=== PATIENT | male | born 1955 | race Caucasian/White ===

== ENCOUNTER 2017-08-29 06:59 | Observation (INO) | payer BC ==
[2017-08-29] MEDS ORDERED: Aspirin 81 mg CHEW TAB* 81 MG TAB.CHEW PO ONE (07:27)
[2017-08-29] MEDS ORDERED: Nitroglycerin 2% OINT* 1 GM PAK TOPICAL ONE (07:27)
[2017-08-29 07:58] LABS: ABS Basophils 0 10^3/ul (0-0.2); ABS Eosinophils 0.2 10^3/ul (0-0.6); ABS Lymphocytes 1.3 10^3/ul (1.0-4.8); ABS Monocytes 0.7 10^3/ul (0-0.8); ABS Neutrophils 3.1 10^3/ul (1.5-7.7); ABS Nucleated RBC 0 10^3/ul; Eosinophil % 3.3 % (0-6); Hematocrit 45 % (42-52); Hemoglobin 15.2 g/dl (14.0-18.0); Mean Corpuscular HGB Conc 34 g/dl (31-36); Mean Corpuscular Hemoglobin 32 pg (27-31); Mean Corpuscular Volume 94 fL (80-94); Mean Platelet Volume 7.7 um3 (7.4-10.4); Nucleated Red Blood Cells % 0.2; Platelet Count 191 10^3/ul (150-450); Red Blood Count 4.79 10^6/ul (4.0-5.4); Red Cell Distribution Width 13 % (10.5-15); White Blood Count 5.3 10^3/ul (3.5-10.8)
[2017-08-29 08:12] LABS: INR 0.9 (0.77-1.02)
[2017-08-29 08:14] LABS: EGFR Non-African American 63.2 (>60)
--- NOTE | 2017-08-29 08:24 | RAD ---
INDICATION: Chest pain COMPARISON: February 05, 2010 TECHNIQUE: An AP portable view obtained at 0730 hours is submitted. FINDINGS: Bones/Soft Tissues: There are no acute bony findings. Cardiomediastinal: The cardiomediastinal silhouette is normal. Lungs: There is apparent nodularity projecting of the left lung base. Suggest CT imaging the chest. Pleura: There is suspicion of pleural reactive change left lung base. Other: None IMPRESSION: LEFT BASILAR NODULE VERSUS ARTIFACT . SUGGEST CT IMAGING OF THE CHEST.
--- NOTE | 2017-08-29 09:52 | ED ---
Stephon Grewal Tiffany, scribed for Shawn Hwang on 08/29/17 at 0735 . HPI Chest Pain - HPI Summary HPI Summary: 61 y/o M presenting to [facility] complains of left chest wall pain that began at 04: 00 today while sleeping. Rates the pain 5/10 in severity. Symptoms aggravated and alleviated by nothing. Denies nausea, vomiting, dizziness, shortness of breath. Denies cardiac hx. - History of Current Complaint Chief Complaint: EDChestPainROMI Hx Obtained From: Patient Onset/Duration: Started Hours Ago - 04:00 today, Still Present Time of Onset: 04:00 Timing: Constant Current Severity: Moderate Pain Intensity: 5 Pain Scale Used: 0-10 Numeric Aggravating Factor(s): Nothing Alleviating Factor(s): Nothing Associated Signs and Symptoms: Positive: Negative - nausea, vomiting, dizziness , shortness of breath - Allergy/Home Medications Allergies/Adverse Reactions: Allergies Allergy/AdvReac Type Severity Reaction Status Date / Time No Known Allergies Allergy Verified 08/29/17 07:08 Home Medications: Home Medications Atenolol TAB* [Tenormin TAB* 25 MG] 25 mg PO DAILY 08/29/17 [History Confirmed 08/29/17] Furosemide TAB* [Lasix TAB*] 20 mg PO DAILY 08/29/17 [History Confirmed 08/29/17 ] Omeprazole CAP* [Prilosec CAP* 20 MG] 20 mg PO DAILY 08/29/17 [History Confirmed 08/29/17] Pravastatin (NF) [Pravachol (NF)] 20 mg PO BEDTIME 08/29/17 [History Confirmed 08/29/17] amLODIPine TAB* [Norvasc 5 mg TAB*] 10 mg PO DAILY 08/29/17 [History Confirmed 08/29/17] PMH/Surg Hx/FS Hx/Imm Hx Previously Healthy: Yes Endocrine/Hematology History: Denies: Hx Diabetes, Hx Thyroid Disease Cardiovascular History: Denies: Hx Congenital Heart Disease, Hx Hypertension Respiratory History: Denies: Hx Asthma, Hx Chronic Obstructive Pulmonary Disease (COPD) GI History: Denies: Hx Ulcer Psychiatric History: Denies: Hx Panic Disorder - Surgical History Surgery Procedure, Year, and Place: "Face stuff removed" Infectious Disease History: No Infectious Disease History: Denies: Hx Hepatitis, Hx Human Immunodeficiency Virus (HIV), Traveled Outside the [place] in Last 30 Days - Family History Known Family History: Positive: Other - Father had pacemaker ~60 y/o - Social History Hx Substance Use: No Substance Use Type: Reports: None Hx Tobacco Use: Yes Smoking Status (MU): Former Smoker - Quit in 2016 Review of Systems Positive: Chest Pain - left Negative: Shortness Of Breath Negative: Vomiting, Nausea Neurological: Negative - Dizziness All Other Systems Reviewed And Are Negative: Yes Physical Exam - Summary Physical Exam Summary: Appearance: Well appearing, no pain distress Skin: warm, dry, reflects adequate perfusion Head/face: normal Eyes: EOMI, JULIENNE ENT: normal Neck: supple, non-tender Respiratory: CTA, breath sounds present Cardiovascular: RRR, pulses symmetrical Abdomen: non-tender, soft Bowel: present Musculoskeletal: normal, strength/ROM intact Neuro: normal, sensory motor intact, A&Ox3 Triage Information Reviewed: Yes Vital Signs On Initial Exam: Initial Vitals Temp Pulse Resp BP Pulse Ox 97.3 F 73 20 148/79 97 08/29/17 07:07 08/29/17 07:07 08/29/17 07:07 08/29/17 07:07 08/29/17 07:07 Vital Signs Reviewed: Yes Diagnostics - Vital Signs Vital Signs Temp Pulse Resp BP Pulse Ox 08/29/17 07:12 20 150/99 08/29/17 07:11 16 08/29/17 07:07 97.3 F 73 20 148/79 97 - Laboratory Lab Results: Lab Results 08/29/17 08/29/17 08/29/17 Range/Units 07:44 07:44 07:44 WBC 5.3 (3.5-10.8) 10^3/ul RBC 4.79 (4.0-5.4) 10^6/ul Hgb 15.2 (14.0-18.0) g/dl Hct 45 (42-52) % MCV 94 (80-94) fL MCH 32 H (27-31) pg MCHC 34 (31-36) g/dl RDW 13 (10.5-15) % Plt Count 191 (150-450) 10^3/ul MPV 7.7 (7.4-10.4) um3 Neut % (Auto) 58.4 (38-83) % Lymph % (Auto) 25.0 (25-47) % [place] % (Auto) 13.1 H (0-7) % Eos % (Auto) 3.3 (0-6) % Baso % (Auto) 0.2 (0-2) % Absolute Neuts (auto) 3.1 (1.5-7.7) 10^3/ul Absolute Lymphs (auto) 1.3 (1.0-4.8) 10^3/ul Absolute Monos (auto) 0.7 (0-0.8) 10^3/ul Absolute Eos (auto) 0.2 (0-0.6) 10^3/ul Absolute Basos (auto) 0 (0-0.2) 10^3/ul Absolute Nucleated RBC 0 10^3/ul Nucleated RBC % 0.2 INR (Anticoag Therapy) (0.77-1.02) APTT (26.0-36.3) seconds Sodium 138 L (139-145) mmol/L Potassium 4.1 (3.5-5.0) mmol/L Chloride 104 (101-111) mmol/L Carbon Dioxide 31 (22-32) mmol/L Anion Gap 3 (2-11) mmol/L BUN 16 (6-24) mg/dL Creatinine 1.18 H (0.67-1.17) mg/dL Est GFR ( Amer) 81.3 (>60) Est GFR (Non-Af Amer) 63.2 (>60) BUN/Creatinine Ratio 13.6 (8-20) Glucose 119 H (70-100) mg/dL Lactic Acid 0.8 (0.5-2.0) mmol/L Calcium 9.3 (8.6-10.3) mg/dL Total Bilirubin 0.50 (0.2-1.0) mg/dL AST 33 (13-39) U/L ALT 49 (7-52) U/L Alkaline Phosphatase 72 (34-104) U/L Troponin I 0.00 (<0.04) ng/mL B-Natriuretic Peptide ( - 100) pg/mL Total Protein 6.8 (6.4-8.9) g/dL Albumin 4.1 (3.2-5.2) g/dL Globulin 2.7 (2-4) g/dL Albumin/Globulin Ratio 1.5 (1-3) 08/29/17 08/29/17 Range/Units 07:44 07:44 WBC (3.5-10.8) 10^3/ul RBC (4.0-5.4) 10^6/ul Hgb (14.0-18.0) g/dl Hct (42-52) % MCV (80-94) fL MCH (27-31) pg MCHC (31-36) g/dl RDW (10.5-15) % Plt Count (150-450) 10^3/ul MPV (7.4-10.4) um3 Neut % (Auto) (38-83) % Lymph % (Auto) (25-47) % [place] % (Auto) (0-7) % Eos % (Auto) (0-6) % Baso % (Auto) (0-2) % Absolute Neuts (auto) (1.5-7.7) 10^3/ul Absolute Lymphs (auto) (1.0-4.8) 10^3/ul Absolute Monos (auto) (0-0.8) 10^3/ul Absolute Eos (auto) (0-0.6) 10^3/ul Absolute Basos (auto) (0-0.2) 10^3/ul Absolute Nucleated RBC 10^3/ul Nucleated RBC % INR (Anticoag Therapy) 0.90 (0.77-1.02) APTT 31.8 (26.0-36.3) seconds Sodium (139-145) mmol/L Potassium (3.5-5.0) mmol/L Chloride (101-111) mmol/L Carbon Dioxide (22-32) mmol/L Anion Gap (2-11) mmol/L BUN (6-24) mg/dL Creatinine (0.67-1.17) mg/dL Est GFR ( Amer) (>60) Est GFR (Non-Af Amer) (>60) BUN/Creatinine Ratio (8-20) Glucose (70-100) mg/dL Lactic Acid (0.5-2.0) mmol/L Calcium (8.6-10.3) mg/dL Total Bilirubin (0.2-1.0) mg/dL AST (13-39) U/L ALT (7-52) U/L Alkaline Phosphatase (34-104) U/L Troponin I (<0.04) ng/mL B-Natriuretic Peptide 36 ( - 100) pg/mL Total Protein (6.4-8.9) g/dL Albumin (3.2-5.2) g/dL Globulin (2-4) g/dL Albumin/Globulin Ratio (1-3) Result Diagrams: 08/29/17 07:44 08/29/17 07:44 Lab Statement: Any lab studies that have been ordered have been reviewed, and results considered in the medical decision making process. - Radiology CXR Radiology Interpretation Completed By: Radiologist - LEFT BASILAR NODULE VERSUS ARTIFACT . SUGGEST CT IMAGING OF THE CHEST. ED physician has reviewed this report. - EKG 06:55 Cardiac Rate: NL - 64 BPM EKG Rhythm: Sinus Rhythm EKG Interpretation: No acute changes Re-Evaluation - Re-Evaluation First Eval Re-Evaluation Time: 08:45 Change: Unchanged Comment: Patient notified of CXR results. Chest Pain Course/Dx - Course Course Of Treatment: 61 y/o M complains of left chest wall pain that began at 04 :00 today while sleeping. Bloodwork, EKG, CXR obtained. Discussed patient care with Dr. Rodriguez, hospitalist, who agrees to admit patient. Dx chest pain and ruled out DC. - Chest Pain Differential Diagnosis/HQI/PQRI: Acute DC, ACS, Angina, Chest Wall, Lower Respiratory Infection - Diagnoses Provider Diagnoses: Chest pain, Ruled out for myocardial infarction - Provider Notifications Discussed Care Of Patient With: Sylvie Rodriguez Time Discussed With Above Provider: 09:03 Instructed by Provider To: Other - Discussed patient with Dr. Rodriguez, hospitalist , who agrees to admit patient. Discharge - Sign-Out/Discharge Documenting (check all that apply): Discharge/Admit/Transfer - Discharge Plan Condition: Stable Disposition: ADMITTED TO [facility] Referrals: Heidy Valenzuela MD [Primary Care Provider] - - Billing Disposition and Condition Condition: STABLE Disposition: [facility] [place] The documentation as recorded by the Stephon toscano Tiffany accurately reflects the service I personally performed and the decisions made by Eri bocanegra Emmanuel.
[2017-08-29] MEDS ORDERED: NS 0.9% 500 ML* 500 ML IV ONE (10:09)
--- NOTE | 2017-08-29 12:13 | HP ---
CC: Dr. Heidy Valenzuela * ADMISSION HISTORY AND PHYSICAL: DATE OF ADMISSION: 08/29/17. PRIMARY C[facility]IC[facility] as Dr[facility] Heidy Valenzuela. ATTENDING PHYSICIAN: Sylvie Rodriguez MD.* (DICTATED BY SPENCER LI NP) CHIEF COMPLAINT: Left sided chest pain since 4 a.m. HISTORY OF PRESENT ILLNESS: This is a very pleasant 61-year-old male patient, who presented to emergency department with his family for complaint of left sided chest pain that started at 4 o'clock this morning. The patient states it woke him from sleep. He also has been associated diaphoresis with the symptoms. The patient told his what happened, stated that it never happened before. He became concerned that the chest pain did not resolve and came to the emergency department for medical evaluation. In the ER, the patient 's chest x-ray and labs are benign. His troponin is negative. Creatinine is slightly elevated at 1.18, but his last creatinine was 1.12. No other abnormalities noted. His EKG does not show any acute ST changes or ectopy. However, when I was interviewing the patient, he began to become diffusely diaphoretic and slightly dizzy. He did have some bradycardia with the rate in the 40s during the episode. Also, he was wearing an inch of nitro paste. I removed the nitro paste. We did an EKG, which shows sinus bradycardia, does not appear to have any changes from his previous with the exception of an abnormal R-wave progression. PAST MEDICAL HISTORY: Significant for hypertension and GERD. PAST SURGICAL HISTORY: Removal of skin tag on the face. MEDICATIONS: At home include: 1. Amlodipine 10 mg daily. 2. Pravastatin 20 mg in the evening. 3. Omeprazole 20 mg daily. 4. Furosemide 20 mg daily. 5. Atenolol 25 mg daily. ALLERGIES: The patient has no known drug allergies. SOCIAL HISTORY: The patient is a former smoker, quit 2 years ago, smoked from age 18 to age 59. Does not drink any alcohol. He states that he used to, but he no longer takes alcohol. Denies any illicit drug use. 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 He lives at home with his and his two daughters. His who is at the bedside is his healthcare proxy. REVIEW OF SYSTEMS: A 10-point review of systems is negative except as noted in HPI. He is a full code. PHYSICAL EXAMINATION GENERAL: The patient is awake, alert, well appearing, in mild distress, which resolved after his diaphoresis resolved. VITAL SIGNS: Blood pressure 106/71, heart rate 52, respiratory rate 18, O2 saturation 95% on room air, temperature is 97.3. HEENT: The patient is atraumatic, normocephalic. PERRLA with nonicteric sclerae. NECK: Supple, nontender. No JVD noted. No carotid bruits auscultated. LUNGS: Clear bilaterally to auscultation with no wheezing, rhonchi or rales. CARDIOVASCULAR: S1, S2 are present. Rate is regular. Rhythm is bradycardic. No murmurs, gallops or rubs noted. ABDOMEN: Soft, nontender, nondistended. Obese. Positive bowel sounds in all 4 quadrants. : Deferred. MUSCULOSKELETAL: There was no clubbing, no cyanosis, and no edema. He has +2 distal pulses palpable. He has an ambulatory gait. Gross motor and sensation are intact. NEUROLOGIC: Grossly intact with no focal deficits. PSYCHIATRIC: He is cooperative and appropriate. DIAGNOSTIC STUDIES/LAB DATA: Laboratories, WBC is 5.3, RBC is 4.79, hemoglobin 15.2, hematocrit 45, platelets 191. Sodium 138, potassium 4.1, chloride 104, CO2 of 31, BUN 16, creatinine 1.18, GFR 63.2, glucose 119, lactic acid 0.8, calcium 9.3. AST 33, ALT 49, alk phos 72. First troponin is negative at 0.00. BNP is 36. Protein 6.8, albumin 4.1, and globulin 2.7. INR is 0.90. Chest x-ray shows a left basilar nodule versus artifact, and suspicion of a pleural reactive change in the left lung base. Latest EKG, sinus bradycardia, no ST segment elevations noted, and no ectopy noted. IMPRESSION: This is a 61-year-old male patient, who presented to the emergency department with left-sided chest pain since 4 a.m. and since he has had no resolution. PLAN/RECOMMENDATIONS: The patient has been admitted to observation service. DIAGNOSES: 1. Chest pain, rule out acute coronary syndrome. The patient is still having the chest pain that did not resolve with aspirin or the nitroglycerin paste; however, given the dip in his heart rate and blood pressure and his profuse diaphoresis, I removed the nitroglycerin. This is probably late effect of the nitro paste. I put in for an echocardiogram of the heart to evaluate his bradycardia and also a nuclear stress test. Once these tests are completed, we will involve Cardiology. We are still pending his second troponin to clear him for the stress test. For his hypertension, currently, he is hypotensive; however, when this resolved, again likely due to the nitroglycerin. We will continue his regularly scheduled blood pressure medications. 2. For his gastroesophageal reflux disease, we will continue the PPI, omeprazole. We will keep him n.p.o. for now. He will continue to be on telemetry. 3. DVT prophylaxis. He is low risk. He can ambulate as tolerated. At this point, his blood pressure is not really low enough for fluids. We will continue to monitor. If he continues to drop below 100 on his systolic and continues to be symptomatic, we will do some gentle hydration to restore his pressure. The rest of the patient's course to be determined by further diagnostics and laboratories and any input from other providers that is warranted during this admission. We will continue to monitor the patient closely. SPENCER LI, CURRY [id number]/[facility] #: [id number] CHRISTIAN
[2017-08-29] MEDS ORDERED: Regadenoson* 0.4 MG/5 ML SYRINGE ONE (13:59)
--- NOTE | 2017-08-29 16:01 | ECHO ---
Patient: JENNIFER OGTTI [facility] Rec#: [id number] : 1955 Date: 08/29/2017 Age: 61y Height: 182.88 cm / 72.0 in Weight: 145.15 kg / 319.9 lbs Sex: M BSA: 2.6 Room#: 439 Admit Date#: 08/29/2017 Type: Inpatient Referring: Maria A Guerra Reading: Jeffrey Paul MD Human Resources Project Manager: Christy Singh RDCS CC: Heidy Valenzuela MD Transthoracic Echocardiogram Indication: Chest Pain BP: 106/71 HR: 72 Rhythm: NSR with PVCs Findings History: Former smoker, morbid obesity. Technical Comments: The study quality is fair. Completed at 1545. Left Ventricle: The left ventricular chamber size is normal. Moderate concentric left ventricular hypertrophy is observed. There is normal left ventricular systolic function. The estimated ejection fraction is 55-60%. There is no consistent Doppler evidence of clinically significant diastolic dysfunction. Left Atrium: The left atrium is mildly dilated. Right Ventricle: Moderator Band present. The right ventricle is moderately dilated. The right ventricular global systolic function is mildly reduced. Right Atrium: The right atrium is moderately dilated. Aortic Valve: The aortic valve is trileaflet. There is no evidence of aortic valve thickening. There is a trace of aortic regurgitation. There is no evidence of aortic stenosis. Mitral Valve: The mitral valve leaflets are mildly thickened. There is trace to mild mitral regurgitation. There is no evidence of mitral stenosis. Tricuspid Valve: The tricuspid valve leaflets are normal. There is trace to mild tricuspid regurgitation. The right ventricular systolic pressure is estimated at 39 mmHg. There is evidence of mild pulmonary hypertension. There is no tricuspid stenosis. Pulmonic Valve: The pulmonic valve appears normal. There is a trace pulmonic regurgitation. There is no pulmonic stenosis. Pericardium: There is no significant pericardial effusion. A pericardial fat pad is visualized. Aorta: There is mild dilatation of the ascending aorta. There is no dilatation of the aortic arch. The aortic root is normal in size. Pulmonary Artery: The main pulmonary artery is not well visualized. Venous: The venous system is not well visualized. The inferior vena cava is not visualized. Summary: There was not any prior study for comparison. Conclusions There is normal left ventricular systolic function. The estimated ejection fraction is 55-60%. The right ventricle is moderately dilated. The right ventricular global systolic function is mildly reduced. There is no evidence of aortic stenosis. There is trace to mild mitral regurgitation. There is trace to mild tricuspid regurgitation. The right ventricular systolic pressure is estimated at 39 mmHg. There is no significant pericardial effusion. Measurements Name Value Normal Range RVIDd (AP) 2D 3.8 cm (0.9 - 2.6) RVDdMajor (2D) 5.1 cm (2.2 - 4.4) RVAW (2D) 0.6 cm (0.2 - 0.5) RAd ISD 4CH 5.7 cm (3.4 - 4.9) RA (A4C)W 5.4 cm (2.9 - 4.6) IVSd (2D) 1.4 cm (0.6 - 1) LVPWd (2D) 1.4 cm (0.6 - 1) LVIDd (2D) 5 cm (3.6 - 5.4) LVIDs (2D) 4.1 cm - LV FS (2D) 17 % (25 - 45) Aortic Annulus 2.7 cm (1.4 - 2.6) Ao root diameter (2D) 3.5 cm (2.1 - 3.5) Ascending Ao 3.7 cm (2.1 - 3.4) Aortic arch 2.7 cm (1.8 - 3.4) LA dimension (AP) 2D 3.6 cm (2.3 - 3.8) LAd ISD 4CH 5.9 cm (2.9 - 5.3) LA ISD 4CH W 4.7 cm (2.5 - 4.5) Name Value Normal Range LA ESV SP 4CH (A/L) 71 ml - LA ESV SP 2CH (A/L) 80 ml - LA ESV BP (A/L) 78 ml - LA ESV BP (A/L) index 30 ml/m2 - LA ESV SP 4CH (MOD) 67 ml - LA ESV SP 2CH (MOD) 72 ml - Name Value Normal Range MV E-wave Vmax 1.16 m/sec - MV deceleration time 197.86 msec - MV A-wave Vmax 0.79 m/sec - MV E:A ratio 1.47 ratio - LV septal e' Vmax 0.08 m/sec - LV lateral e' Vmax 0.12 m/sec - LV E:e' septal ratio 14.5 ratio - LV E:e' lateral ratio 9.67 ratio - Name Value Normal Range AV Vmax 1.3 m/sec - AV VTI 29.4 cm - AV peak gradient 6.77 mmHg - AV mean gradient 3.42 mmHg - LVOT Vmax 1.15 m/sec - LVOT VTI 24.25 cm - LVOT peak gradient 5.32 mmHg - LVOT mean gradient 2.72 mmHg - ROE Vmax 0.8 m/sec - Name Value Normal Range TR Vmax 2.8 m/sec - TR peak gradient 31 mmHg - RAP 8 mmHg - RVSP 39 mmHg - Name Value Normal Range PV Vmax 0.95 m/sec - PV peak gradient 3.61 mmHg -
[2017-08-30 07:47] VITALS: BP 151/82
[2017-08-30] MEDS ORDERED: Atenolol TAB* 25 MG PO SCH (09:00)
[2017-08-30] MEDS ORDERED: amLODIPine TAB* 5 MG PO SCH (09:00)
[2017-08-30] MEDS ORDERED: Furosemide TAB* 20 MG PO SCH (09:00)
[2017-08-30] MEDS ORDERED: Omeprazole CAP* 20 MG PO SCH (09:00)
--- NOTE | 2017-08-30 09:30 | RAD ---
INDICATION: Chest pain COMPARISON: None TECHNIQUE: Rest images were acquired following the intravenous injection of 25.1 millicuries of technetium 99m tetrofosmin. Pharmacologic stress images were acquired following the intravenous administration of 25.8 millicuries of technetium 99m tetrofosmin. FINDINGS: There is subtle decreased activity in the inferoapical region suspicious for inferoapical ischemia. There are no additional defects of a stress-induced or fixed nature. The cardiac chamber size is normal. There are no wall motion abnormalities. The ejection fraction is calculated at 54 percent during rest and 60 during stress. IMPRESSION: FINDINGS SUSPICIOUS FOR SUBTLE INFEROAPICAL ISCHEMIA. ASSESSMENT: LOW-RISK Based on imaging criteria from ACC/AHA 2002 Guideline Update for the Management of Patients With Chronic Stable Angina Table 23. Noninvasive Risk Stratification.
--- NOTE | 2017-09-01 12:01 | DS ---
CC: Dr. Heidy Valenzuela; Dr. Nicci Crystal DISCHARGE SUMMARY: DATE OF ADMISSION: 08/29/17 DATE OF DISCHARGE: 08/30/17 PRIMARY CARE PROVIDER: Dr. Heidy Valenzuela at the [place]. MY ATTENDING WHILE IN THE HOSPITAL: Dr. Nicci Crystal. PRIMARY DISCHARGE DIAGNOSES: 1. Chest pain. 2. Hypertension. SECONDARY DISCHARGE DIAGNOSES: 1. Gastroesophageal reflux disease. 2. Hyperlipidemia. STUDIES DONE WHILE IN THE HOSPITAL: Nuclear medicine scan from 08/30/17 read as finding suspicious f or subtle inferoapical ischemia at low risk. Ejection fraction 54% and 60% during the stress. Transthoracic echocardiogram from 08/29/17 shows normal left ventricular systolic function. Estimate d ejection fraction 55% to 60%. Right ventricle moderately dilated. Right ventricular global systol ic function is mildly reduced. There is no evidence of aortic stenosis. There is trace to mild amaya ral regurgitation. There is trace to mild tricuspid regurgitation. Right ventricular systolic pressu re estimated 39 mmHg. There is no significant pericardial effusion. Chest x- ray from 08/29/17 read as left basilar nodule versus artifact, suggest CT imaging of the chest. EKG from 08/29/17 read as normal sinus rhythm. No ST segment abnormalities. QTc from July 28 read as 64. No hypertrophy or enlargement. Repeat EKG from 08/29/17 read as no significant changes from previous examination. MEDICATIONS AT DISCHARGE: 1. Furosemide 20 mg p.o. daily. 2. Amlodipine 10 mg p.o. daily. 3. Pravastatin 10 mg p.o. at bedtime. 4. Omeprazole 20 mg p.o. daily. 5. Atenolol 25 mg p.o. daily. 6. Aspirin 81 mg p.o. daily. New medication at discharge: Aspirin. HOSPITAL COURSE: This is a brief summary of the patient's presentation. For more details, please se e the history and physical from Maria A Cook on 08/29/17. In brief, patient is a 61-year-ol d male with past medical history significant for the above, who presented with left sided chest pain that started at 4 o'clock on 08/29/17, woken up from sleep, associated with diaphoresis. He states t his has never happened before, but then later he stated that this has happen before with gastrointest inal symptoms. Chest pain did not resolve. Troponin was negative. Slightly elevated creatinine. N o ST segment changes. He has bradycardia with nitro paste which did not help resolve his symptoms. The bradycardia resolves after removal of nitro paste. Patient was admitted to the hospital for a nu clear stress test. Patient had resolution of his chest pain spontaneously. Patient had a stress case t in the morning of 08/30/17, which was read as above. Patient had no other symptoms. Patient had n o chest pain during the episode. Patient was very anxious to go home. Patient is amenable to follow up with his primary care provider and for primary prevention of myocardial infarction. PHYSICAL EXAM ON DATE OF DISCHARGE: General: The patient is a 61-year-old male who appears stated a ge and sitting comfortably in the bed, in no acute distress. Vital Signs: At the time of discharge, temperature 97.4, pulse rate 84, respiratory rate 18, oxygen saturation 98% on room air, blood pressu re 151/82. HEENT: Head: Normocephalic, atraumatic. Sclerae anicteric. No conjunctival injection. Nasal mucosa is moist. Oral mucosa moist. No pharyngeal erythema, discharge, or exudate. Neck: S upple, nontender. No lymphadenopathy. No carotid bruits auscultated. No JVD. Cardiac: Regular ra te and rhythm. No clicks, murmurs, gallops, or rubs. Pulses 2+ in the bilateral dorsalis pedis, pos terior tibial, and the radial areas. No lower extremity edema. No calf tenderness noted. Skin: Shahzad an, dry and intact. No rash. Respiratory: Clear to auscultation bilaterally. No wheezes, rales, or rhonchi. Good air exchange bilaterally. Abdomen: Soft, nontender, nondistended. Obese. Bowel soun ds present in all 4 quadrants. No hepatosplenomegaly. No abdominal bruits auscultated. Genitourina ry: No suprapubic or CVA tenderness. Neuro: Cranial nerves II through XII intact. No focal deficit s. Alert and oriented x3. Psychiatric: Pleasant and cooperative. LABORATORY DATA: From admission, creatinine of 1.18, troponin I 0.00 x2. Sodium 138, glucose 119. No other significant abnormalities. DISCHARGE PLAN: The patient will be discharged to home to follow up with primary care provider withi n 1 week for continued primary prevention of MT. Patient will be continued on his statin therapy, be ta chris, Lasix and will be started on aspirin. Patient will be continued on his omeprazole becaus e of the possibility that his chest pain was related to reflux as this has happened before. Patient had pulmonary hypertension on his echocardiogram, which could be related to underlying lung disease o r diastolic dysfunction of the heart. Consideration should be made for outpatient PFTs or pulmonary consultation as patient also has a possible pulmonary nodule which should be followed up, incidentall y found on his chest x- ray. Patient should return to the hospital for alarming symptoms such as princess st pain, shortness of breath, syncope. Patient should engage n activity as tolerated and heart-healt hy diet without caffeine. Patient would benefit from losing weight. Patient should also undergo hemo globin A1c testing and lipid profile routinely for screening and continued primary prevention of MT. TIME SPENT: Approximately 60 minutes was spent on this discharge, 30 of which was spent [id number] with the patient obtaining history and physical and discussing treatment plan. SEB RUBIO [id number]/CPS #: [id number]
== END 2017-08-30 10:54 | disposition home or self-care (01) ==
LOC: ED 06:59 → MEDTELE 10:38
PROVIDERS: ADMIT Internal Medicine; ATTEND Student in an Organized Health Care Education/Training Program
DX: R07.9 Chest pain, unspecified (principal); I10 Essential (primary) hypertension; K21.9 Gastro-esophageal reflux disease without esophagitis; Z79.899 Other long term (current) drug therapy; Z87.891 Personal history of nicotine dependence; R00.1 Bradycardia, unspecified; I51.7 Cardiomegaly
CPT/HCPCS: 36415; 71045; 78452; 80053; 83605; 83880; 84484; 85025; 85379; 85610; 85730; 93005; 93017; 93306; 99285; A9270-GY; A9502; G0378; J2785

== ENCOUNTER 2018-04-12 12:32 | Inpatient (IN) | payer BC ==
[~2018-04-12 12:32] MED LIST: Heparin 2 UNITS/ML IVPREMIX* 3,000 ML IV ONE; Heparin(*) 1000 UNIT/ML 10 ML VIAL CATH LAB IV ONE; Lidocaine 1% INJ* 10 MG/ML 30 ML SDV ONE; VERAPAMIL 2.5 MG/ML 2 ML VIAL ** 5 mg/2 ml ONE; nitroGLYCERIN DRIP* 25,000 MCG/250 ML BTL ONE
[2018-04-12] MEDS ORDERED: Midazolam* 1 MG/ML 10 ML VIAL (10 MG) ONE ×2 (12:42→14:25)
[2018-04-12] MEDS ORDERED: fentaNYL* 50 MCG/ML 2 ML VIAL (100 MCG VIAL) ONE ×3 (12:42→14:25)
[2018-04-12 12:45] LABS: ABS Basophils 0.1 10^3/ul (0-0.2); ABS Eosinophils 0.2 10^3/ul (0-0.6); ABS Lymphocytes 1.6 10^3/ul (1.0-4.8); ABS Monocytes 0.6 10^3/ul (0-0.8); ABS Neutrophils 6.5 10^3/ul (1.5-7.7); ABS Nucleated RBC 0 10^3/ul; Eosinophil % 1.8 %; Hematocrit 48 % (42-52); Lymphocyte % 17.8 %; Mean Corpuscular HGB Conc 34 g/dl (31-36); Mean Corpuscular Hemoglobin 32 pg (27-31); Mean Corpuscular Volume 95 fL (80-94); Nucleated Red Blood Cells % 0.1; Platelet Count 233 10^3/ul (150-450); Red Blood Count 5.02 10^6/ul (4.00-5.40); Red Cell Distribution Width 13 % (10.5-15)
--- NOTE | 2018-04-12 12:55 | ED ---
HPI Chest Pain - HPI Summary HPI Summary: The patient is a 62 y/o M presenting to [facility] arriving by ambulance from Dr. Valenzuela's office today with chest pain starting at 1100 this morning. He went to his PCP for the pain; an EKG was performed, and he was having a STEMI. 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 In the ED, the patient's symptoms have improved, but he is still in pain rated 2/10 in severity. He has never had this before. - History of Current Complaint Hx Obtained From: Patient Onset/Duration: Started Hours Ago - at 1100, Still Present Timing: Lasting Hours Initial Severity: Severe Current Severity: Severe Pain Intensity: 2 Pain Scale Used: 0-10 Numeric Chest Pain Location: Diffuse Chest Pain Radiates: No Character: Crushing Aggravating Factor(s): Nothing Alleviating Factor(s): Nothing Associated Signs and Symptoms: Positive: Chest Pain. Negative: Dizziness, Shortness of Breath, Fever, Chills - Allergy/Home Medications Allergies/Adverse Reactions: Allergies Allergy/AdvReac Type Severity Reaction Status Date / Time nitroglycerin Allergy Unknown Verified 10/03/17 16:22 Reaction Details PMH/Surg Hx/FS Hx/Imm Hx Endocrine/Hematology History: Denies: Hx Diabetes, Hx Thyroid Disease Cardiovascular History: Reports: Hx Angina, Hx Hypercholesterolemia, Hx Hypertension - controlled with medication, Other Cardiovascular Problems/ Disorders - CP 3 WKS AGO Denies: Hx Congenital Heart Disease, Hx Coronary Artery Disease, Hx Myocardial Infarction, Hx Valvular Heart Disease Respiratory History: Reports: Hx Asthma Denies: Hx Chronic Obstructive Pulmonary Disease (COPD) GI History: Denies: Hx Ulcer History: Denies: Hx Dialysis, Hx Renal Disease Sensory History: Denies: Hx Contacts or Glasses, Hx Hearing Aid Opthamlomology History: Denies: Hx Contacts or Glasses Psychiatric History: Denies: Hx Panic Disorder - Surgical History Surgery Procedure, Year, and Place: "Face stuff removed"-moles-benign Infectious Disease History: Denies: Hx Clostridium Difficile, Hx Hepatitis, Hx Human Immunodeficiency Virus (HIV), Hx of Known/Suspected MRSA, Hx Shingles, Hx Tuberculosis, History Other Infectious Disease, Traveled Outside the [place] in Last 30 Days - Family History Known Family History: Positive: Other - Father had pacemaker ~60 y/o - Social History Alcohol Use: None Hx Substance Use: No Substance Use Type: Reports: None Hx Tobacco Use: Yes Smoking Status (MU): Former Smoker Type: Cigarettes Have You Smoked in the Last Year: No Review of Systems Negative: Fever, Chills Negative: Erythema Negative: Sore Throat Positive: Chest Pain - sharp. Negative: Palpitations Negative: Shortness Of Breath, Cough Negative: Abdominal Pain, Vomiting, Nausea Negative: dysuria, hematuria Negative: Myalgia, Edema Negative: Rash Neurological: Other - NEGATIVE: dizziness All Other Systems Reviewed And Are Negative: Yes Physical Exam - Summary Physical Exam Summary: Constitutional: Well-developed, Well-nourished, Alert. (-) Distressed Skin: Warm, Dry HENT: Normocephalic; Atraumatic Eyes: Conjunctiva normal Neck: Musculoskeletal ROM normal neck. (-) JVD, (-) Stridor, (-) Tracheal deviation Cardio: Rhythm regular, rate normal, Heart sounds normal; Intact distal pulses; The pedal pulses are 2+ and symmetric. Radial pulses are 2+ and symmetric. (-) Murmur Pulmonary/Chest wall: Effort normal. (-) Respiratory distress, (-) Wheezes, (-) Rales Abd: Soft, (-) epigastric tenderness, (-) Distension, (-) Guarding, (-) Rebound Musculoskeletal: (-) Edema Lymph: (-) Cervical adenopathy Neuro: Alert, Oriented x3 Psych: Mood and affect Normal Triage Information Reviewed: Yes Vital Signs Reviewed: Yes Diagnostics - Laboratory Lab Results: Lab Results 04/12/18 04/12/18 Range/Units 12:34 12:34 WBC 9.0 (3.5-10.8) 10^3/ul RBC 5.02 (4.00-5.40) 10^6/ul Hgb 16.0 (14.0-18.0) g/dl Hct 48 (42-52) % MCV 95 H (80-94) fL MCH 32 H (27-31) pg MCHC 34 (31-36) g/dl RDW 13 (10.5-15) % Plt Count 233 (150-450) 10^3/ul MPV 8.0 (7.4-10.4) fL Neut % (Auto) 72.6 % Lymph % (Auto) 17.8 % [place] % (Auto) 6.7 % Eos % (Auto) 1.8 % Baso % (Auto) 1.1 % Absolute Neuts (auto) 6.5 (1.5-7.7) 10^3/ul Absolute Lymphs (auto) 1.6 (1.0-4.8) 10^3/ul Absolute Monos (auto) 0.6 (0-0.8) 10^3/ul Absolute Eos (auto) 0.2 (0-0.6) 10^3/ul Absolute Basos (auto) 0.1 (0-0.2) 10^3/ul Absolute Nucleated RBC 0 10^3/ul Nucleated RBC % 0.1 Blood Type Pending Antibody Screen Pending Result Diagrams: 04/12/18 12:34 Lab Statement: Any lab studies that have been ordered have been reviewed, and results considered in the medical decision making process. Chest Pain Course/Dx - Course Course Of Treatment: The patient is a 62 y/o M [facility] arriving by ambulance from Dr. Valenzuela's office today with chest pain starting at 1100 this morning. He went to his PCP for the pain; an EKG was performed, and he was having a STEMI. 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 In the ED, the patient 's symptoms have improved, but he is still in pain rated 2/10 in severity. He has never had this before. Upon physical exam, the patient exhibited no acute abnormalities. 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 Patient agrees with this plan and understands the need for admission. - Diagnoses Provider Diagnoses: STEMI (ST elevation myocardial infarction) During the Visit The Following Alert/Code Occurred: STEMI - called at 1200 Discharge - Sign-Out/Discharge Documenting (check all that apply): Patient Departure - Patient will be admitted to [facility] for further care. - Discharge Plan Condition: Stable Disposition: ADMITTED TO [facility] - Billing Disposition and Condition Condition: STABLE Disposition: Admitted to [facility] - Attestation Statements Document Initiated by Scribe: Yes Documenting Scribe: Maria Guadalupe Ruffin Provider For Whom Scribe is Documenting (Include Credential): Dr. Jed Aguilar MD Scribe Attestation: Maria Guadalupe Grewal scribed for Dr. Jed Aguilar MD on 04/12/18 at 1435. Scribe Documentation Reviewed: Yes Provider Attestation: The documentation as recorded by the scribe, Maria Guadalupe Ruffin accurately reflects the service I personally performed and the decisions made by me, Dr. Jed Aguilar MD Status of Scribe Document: Viewed
[2018-04-12 13:00] LABS: Activated Partial Thrombo Time 34.8 seconds (26.0-36.3); INR 0.88 (0.77-1.02)
[2018-04-12] MEDS ORDERED: Ticagrelor* 90 MG TAB PO ONE (13:02)
[2018-04-12 13:05] LABS: Albumin 4.6 g/dL (3.2-5.2); Albumin/Globulin Ratio 1.8 (1-3); BUN/Creatinine Ratio 13.8 (8-20); Calcium 9.6 mg/dL (8.6-10.3); EGFR African American 68.1 (>60); EGFR Non-African American 56.3 (>60); Globulin 2.5 g/dL (2-4); Total Bilirubin 0.5 mg/dL (0.2-1.0); Total Protein 7.1 g/dL (6.4-8.9)
[2018-04-12 13:08] LABS: Myoglobin 143.8 ng/mL (17.4-105.7)
[2018-04-12 13:09] LABS: CKMB ng/mL 7.5 ng/mL (0.6-6.3)
[2018-04-12] MEDS ORDERED: nitroGLYCERIN DRIP* 0 MCG/0 ML BTL ONE (13:12)
[2018-04-12 13:14] LABS: Troponin I 0.08 ng/mL (<0.04)
[2018-04-12] MEDS ORDERED: NitroPRUSSide* 25 MG/ML 2 ML VIAL IVPB ONE (13:21)
[2018-04-12] MEDS ORDERED: Acetaminophen TAB* 325 MG PO PRN (13:52)
[2018-04-12] MEDS ORDERED: Nitroglycerin TAB 0.4 MG* 0.4 MG TAB SL PRN ×2 (13:52→15:39)
[2018-04-12] MEDS ORDERED: NS 0.9% 1000 ML** 1,000 ML IV SCH (14:00)
[2018-04-12] MEDS ORDERED: Iohexol 350 (CONTRAST) 200 ML MDV IV ONE (14:23)
[2018-04-12] MEDS ORDERED: Heparin 2 UNITS/ML IVPREMIX* 2,000 ML IV ONE (14:23)
[2018-04-12] MEDS ORDERED: Lidocaine 1% INJ* 10 MG/ML 30 ML SDV ONE (14:23)
[2018-04-12] MEDS ORDERED: Eptifibatide IV (Load dose)(*) 2 MG/ML 10 ml VIAL ONE ×3 (14:25→14:31)
[2018-04-12] MEDS ORDERED: Eptifibatide (*) 100 ML ONE (14:25)
[2018-04-12] MEDS ORDERED: nitroGLYCERIN DRIP* 25,000 MCG/250 ML BTL ONE (14:32)
[2018-04-12] MEDS ORDERED: Meperidine SYRINGE* 50 MG/ML ONE (14:40)
[2018-04-12] MEDS ORDERED: Heparin(*) 1000 UNIT/ML 10 ML VIAL CATH LAB IV ONE (14:47)
[2018-04-12] MEDS ORDERED: oxyCODONE/Acetamin 5/325 MG* TAB PO PRN (17:07)
[2018-04-12 17:47] LABS: TSH (Thyroid Stimulating Horm) 4.43 mcIU/mL (0.34-5.60)
[2018-04-12 17:50] LABS: Free T4 0.93 ng/dL (0.61-1.12)
[2018-04-12] MEDS: Atorvastatin* 80 MG TAB PO SCH (18:10)
[2018-04-12] MEDS: Metoprolol Tartrate TAB* 25 MG PO SCH ×2 (18:10→20:29)
--- NOTE | 2018-04-12 18:17 | HP ---
CC: Dr. Valenzuela; Dr. Altagracia Bess * HISTORY AND PHYSICAL: DATE OF ADMISSION: 04/12/18 PRIMARY CARE PHYSICIAN: Dr. Valenzuela in [place]. HISTORY OF PRESENT ILLNESS: A 62-year-old male transferred from Dr. Valenzuela's office with acute inferior wall ST elevation infarct. He has no previous known cardiac disease. He was evaluated here 08/29/17 for chest pain. He had normal LV systolic function by echo, right ventricular dilatation. RV systolic pressure was estimated at 39. Stress imaging reportedly was "suspicious for subtle inferoapical ischemia at low risk." He was discharged on medical therapy. Troponins then were 0.0. He was discharged on medical therapy. He subsequently by history has been asymptomatic until today at around 11:00 this morning when he developed chest pain. His daughter drove him to Dr. Valenzuela's office where EKG at 12:[address] elevation consistent with an inferolateral ST elevation infarct with reciprocal ST depression, and a short P-R interval. Prior P-R intervals had been normal. The inferolateral injury was confirmed on EMS EKG at 12:27. He received aspirin 325, was transferred to our ER. On arrival in our ER, he was still having chest pain and was brought directly to the labor trainer. PAST MEDICAL HISTORY: Hyperlipidemia, hypertension, obesity, CKD stage 3 with creatinine 1.32 in November, GFR 55. Creatinine here on 08/29/17 was 1.18. Hypertension with per history poor control with home blood pressures often in the 180s over 100. Morbid obesity with weight gain over the past several years particularly since he stopped smoking last spring. Hyperlipidemia with lipid profile 11/23/17 on Pravachol 20, total cholesterol 168, triglycerides 131, LDL 118, HDL 42. A1c at that time was 6. PRE-HOSPITAL MEDICATIONS: 1. Pravachol 20 mg daily. 2. Ventolin p.r.n. 3. Aspirin 81 mg daily. 4. Lasix 20 mg daily. 5. Lisinopril/hydrochlorothiazide 20/25 daily. ALLERGIES: He reports hypotension with syncope from NITRO PASTE, likely due to hypotension, not an allergic manifestation. FAMILY HISTORY: Negative for premature coronary artery disease. SOCIAL HISTORY: He stopped smoking last spring. 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 REVIEW OF SYSTEMS: General: He has had great weight gain. Pulmonary: He denies cough or hemoptysis, is on a p.r.n. bronchodilator. Heme: No history of malignancy or anemia or bleeding. GI: No peptic ulcer disease or bleeding. Endocrine: No known diabetes, but previous A1c of 6 consistent with prediabetes , blood sugar random in November was 96. Last August, fasting blood sugar was 119; in 2015 and 2017, it was 104 and 23 respectively. Remainder all negative. PHYSICAL EXAMINATION VITAL SIGNS: 182/108, sinus rhythm 76. HEENT: Unremarkable without xanthelasma or scleral injection. EOMs normal. Cranial nerves grossly intact. NECK: Supple. No thyromegaly, no JVD. Carotids palpable. No bruits. LUNGS: There were no rales laterally, no expiratory wheezing. CARDIAC: RV and apex not palpable, regular rhythm, normal heart sounds. No audible gallop, murmur, or rub. ABDOMEN: Obese, nontender. No audible bruit. I cannot feel the aorta or liver edge. Femoral pulses 2+ bilaterally and no bruits. EXTREMITIES: Radial and pedal pulses palpable. He has no cyanosis, clubbing, or edema. PSYCHIATRY: Oriented, appropriate. SKIN: Warm and perfused. DIAGNOSTIC STUDIES/LAB DATA: BMP here confirmed CKD stage 3 with a creatinine of 1.3, GFR of 56.3, random blood sugar of 119. CPK-MB 7.5, myoglobin elevated , first troponin 0.08, BNP 101. Direct LDL 129. CBC notable only for macrocytosis with MCV of 95. IMPRESSION: 1. Acute inferolateral ST elevation infarct. He underwent emergent catheterization and revascularization. 2. Hyperlipidemia. He will be switched to a high-dose potent statin. 3. Hypertension, per history not controlled on his lisinopril/ hydrochlorothiazide 20/25 with Lasix 20 mg daily. His antihypertensives will be uptitrated. 4. Obesity. We will encourage him to reduce weight. He does have a history of snoring and is at relatively high risk for obstructive sleep apnea. If possible, we will do screening while he is here in the hospital. 5. Hyperglycemia with possible prediabetes/metabolic syndrome. 6. Chronic kidney disease stage 3. I have ordered a urinalysis. [id number]/[facility] #: [id number] [facility]
[2018-04-12 18:36] LABS: Troponin I 2.98 ng/mL (<0.04)
[2018-04-12] MEDS: Eptifibatide (*) 100 ML IV SCH ×2 (19:19→23:34)
[2018-04-12 21:17] LABS: CKMB ng/mL 118.4 ng/mL (0.6-6.3); Troponin I 7.9 ng/mL (<0.04)
[2018-04-12] MEDS: Ticagrelor* 90 MG TAB PO SCH (21:42)
[2018-04-12] MEDS: Captopril TAB* 12.5 MG PO SCH (21:43)
[2018-04-12 22:15] LABS: Urine Appearance Clear; Urine Bilirubin Negative (Negative); Urine Blood Negative (Negative); Urine Color Yellow; Urine Glucose Negative (Negative); Urine Ketones 1+ (Negative); Urine Nitrite Negative (Negative); Urine Protein Negative (Negative); Urine Specific Gravity > 1.060 (1.010-1.030); Urine Urobilinogen Negative (Negative)
[2018-04-13] MEDS: Metoprolol Tartrate TAB* 25 MG PO SCH ×4 (02:02→21:06)
[2018-04-13 02:35] LABS: CKMB ng/mL 283.4 ng/mL (0.6-6.3)
[2018-04-13 02:40] LABS: Troponin I 50.07 ng/mL (<0.04)
[2018-04-13] MEDS: Eptifibatide (*) 100 ML IV SCH (03:50)
[2018-04-13 05:43] LABS: BUN/Creatinine Ratio 16.2 (8-20); Calcium 8.6 mg/dL (8.6-10.3); EGFR African American 93.3 (>60); EGFR Non-African American 77.1 (>60); Potassium 3.6 mmol/L (3.5-5.0)
[2018-04-13] MEDS ORDERED: Potassium Chlor TAB* 20 MEQ TAB.ER PO ONE (09:07)
[2018-04-13] MEDS: Aspirin 81 mg CHEW TAB* 81 MG TAB.CHEW PO SCH (09:07)
[2018-04-13] MEDS: Ticagrelor* 90 MG TAB PO SCH ×2 (09:08→21:06)
[2018-04-13] MEDS ORDERED: Perflutren Lipid Microsphere* 3 ML VIAL ONE (10:11)
[2018-04-13] MEDS: Captopril TAB* 25 MG PO SCH ×3 (10:43→21:06)
[2018-04-13 11:33] LABS: ABS Basophils 0.1 10^3/ul (0-0.2); ABS Eosinophils 0.1 10^3/ul (0-0.6); ABS Lymphocytes 1.5 10^3/ul (1.0-4.8); ABS Neutrophils 12.6 10^3/ul (1.5-7.7); ABS Nucleated RBC 0 10^3/ul; Eosinophil % 0.4 %; Hematocrit 41 % (42-52); Hemoglobin 13.5 g/dl (14.0-18.0); Lymphocyte % 9.5 %; Mean Corpuscular HGB Conc 33 g/dl (31-36); Mean Corpuscular Hemoglobin 31 pg (27-31); Mean Corpuscular Volume 94 fL (80-94); Mean Platelet Volume 8.1 fL (7.4-10.4); Nucleated Red Blood Cells % 0; Platelet Count 233 10^3/ul (150-450); Red Blood Count 4.33 10^6/ul (4.00-5.40); Red Cell Distribution Width 13 % (10.5-15); White Blood Count 15.3 10^3/ul (3.5-10.8)
[2018-04-13] MEDS: Captopril TAB* 12.5 MG PO SCH (11:45)
--- NOTE | 2018-04-13 16:53 | ECHO ---
Patient: JENNIFER GOTTI [facility] Rec#: [id number] : 1955 Date: 04/13/2018 Age: 62y Height: 183 cm / 72.0 in Weight: 143 kg / 315.2 lbs Sex: M BSA: 2.59 Room#: ICU 3 Admit Date#: 04/12/2018 Type: Inpatient Referring: Altagracia Bess MD Reading: Eren Barclay DO Doctor Of Radiology: Violeta Titus RN RDCS CC: Heidy Valenzuela MD Transthoracic Echocardiogram Indication: STEMI S/P PCI BP: 137/96 HR: 81 Rhythm: NSR with PVCs Findings History: HTN, HLD, former smoker, morbid obesity. Technical Comments: The study is technically limited due to patient body habitus. The study is technically limited due to the patient's smoking history. Left Ventricle: The left ventricular chamber size is normal. Mild concentric left ventricular hypertrophy is observed. There is a focal wall motion abnormality present. Left ventricular systolic function is at the lower limits of normal. The estimated ejection fraction is 50-55%. Abnormal left ventricular diastolic function is observed. The mid inferolateral wall segment is hypokinetic (score 2). The apical lateral, and apical inferior wall segments are akinetic (score 3). Overall wallmotion score index is 2.67 Left Atrium: The left atrium is slightly dilated. Right Ventricle: The right ventricle is mildly dilated. The right ventricular global systolic function is mildly reduced. Right Atrium: The right atrial cavity size is normal. Aortic Valve: The aortic valve structure is not well visualized. The aortic valve leaflets are mildly thickened. There is no evidence of aortic regurgitation. There is no evidence of aortic stenosis. Mitral Valve: The mitral valve leaflets are mildly thickened. There is trace to mild mitral regurgitation. There is no evidence of mitral stenosis. Tricuspid Valve: The tricuspid valve leaflets are normal. There is trace tricuspid regurgitation. Unable to estimate the right ventricular systolic pressure. There is no tricuspid stenosis. Pulmonic Valve: The pulmonic valve structure is not well visualized. There is a trace pulmonic regurgitation. There is no pulmonic stenosis. Pericardium: There is no significant pericardial effusion. Aorta: There is mild dilatation of the ascending aorta. There is no dilatation of the aortic arch. There is mild dilatation of the aortic root. Pulmonary Artery: The main pulmonary artery is not well visualized. Venous: The inferior vena cava is dilated. There is a greater than 50% respiratory change in the inferior vena cava dimension. Contrast: Definity was used to optimize study. A total of 4 ml of diluted Definity was given IV to enhance endocardial border definition. Conclusions The left ventricular chamber size is normal. Mild concentric left ventricular hypertrophy is observed. There is a focal wall motion abnormality present. Left ventricular systolic function is at the lower limits of normal. The estimated ejection fraction is 50-55% with inferior/inferolateral wall motion abnormalities The left atrium is slightly dilated. The right ventricle is mildly dilated. The right ventricular global systolic function is mildly reduced. No significant valvular abormalities noted Unable to estimate the right ventricular systolic pressure. Compared to prior study from 08/2017, wall motion abnormality is new Measurements Name Value Normal Range RVIDd (AP) 2D 3.9 cm (0.9 - 2.6) RVDdMajor (2D) 4 cm (2.2 - 4.4) RAd ISD 4CH 4.8 cm (3.4 - 4.9) RA (A4C)W 3.7 cm (2.9 - 4.6) IVSd (2D) 1.1 cm (0.6 - 1) LVPWd (2D) 1.1 cm (0.6 - 1) LVIDd (2D) 5.4 cm (3.6 - 5.4) LVIDs (2D) 4.3 cm - LV FS (2D) 20 % (25 - 45) Aortic Annulus 2.4 cm (1.4 - 2.6) Ao root diameter (2D) 3.6 cm (2.1 - 3.5) Ascending Ao 3.5 cm (2.1 - 3.4) Aortic arch 2.9 cm (1.8 - 3.4) LA dimension (AP) 2D 4.4 cm (2.3 - 3.8) LAd ISD 4CH 4.9 cm (2.9 - 5.3) LA ISD 4CH W 4 cm (2.5 - 4.5) Name Value Normal Range LA ESV BP (A/L) index 23 ml/m2 - Name Value Normal Range MV E-wave Vmax 1.2 m/sec - MV deceleration time 176 msec - MV A-wave Vmax 1 m/sec - MV E:A ratio 1.1 ratio - LV septal e' Vmax 0.09 m/sec - LV lateral e' Vmax 0.1 m/sec - LV E:e' septal ratio 13.3 ratio - LV E:e' lateral ratio 12 ratio - Name Value Normal Range AV Vmax 1.5 m/sec - AV VTI 28 cm - AV peak gradient 9 mmHg - AV mean gradient 4 mmHg - LVOT Vmax 1.2 m/sec - LVOT VTI 20.9 cm - LVOT peak gradient 6 mmHg - LVOT mean gradient 3 mmHg - ROE Vmax 0.56 m/sec - Name Value Normal Range IVC diameter 2.6 cm - Name Value Normal Range PV Vmax 0.81 m/sec - Wallmotion BAS Not Seen BA Not Seen BAL Not Seen SHILPI Not Seen BI Not Seen BIS Not Seen MAS Not Seen MA Not Seen MAL Not Seen MIL Hypokinetic TX Not Seen MIS Not Seen Not Seen AA Not Seen AL Akinetic AI Akinetic APEX Not Seen
[2018-04-13] MEDS: Atorvastatin* 80 MG TAB PO SCH (16:58)
[2018-04-13] MEDS ORDERED: Metoprolol Tartrate TAB* 25 MG PO SCH (21:00)
[2018-04-14 05:35] LABS: ABS Basophils 0.1 10^3/ul (0-0.2); ABS Eosinophils 0.2 10^3/ul (0-0.6); ABS Lymphocytes 1.7 10^3/ul (1.0-4.8); ABS Monocytes 0.7 10^3/ul (0-0.8); ABS Neutrophils 7.5 10^3/ul (1.5-7.7); ABS Nucleated RBC 0 10^3/ul; Eosinophil % 1.6 %; Hematocrit 40 % (42-52); Hemoglobin 13.5 g/dl (14.0-18.0); Mean Corpuscular HGB Conc 34 g/dl (31-36); Mean Corpuscular Hemoglobin 32 pg (27-31); Mean Corpuscular Volume 94 fL (80-94); Mean Platelet Volume 8.1 fL (7.4-10.4); Nucleated Red Blood Cells % 0; Platelet Count 200 10^3/ul (150-450); Red Blood Count 4.22 10^6/ul (4.00-5.40); Red Cell Distribution Width 13 % (10.5-15); White Blood Count 10.2 10^3/ul (3.5-10.8)
[2018-04-14 05:50] LABS: BUN/Creatinine Ratio 14.7 (8-20); Calcium 8.7 mg/dL (8.6-10.3); EGFR African American 97.9 (>60); EGFR Non-African American 80.9 (>60); Potassium 4.1 mmol/L (3.5-5.0)
[2018-04-14] MEDS: Aspirin 81 mg CHEW TAB* 81 MG TAB.CHEW PO SCH (08:37)
[2018-04-14] MEDS: Metoprolol Tartrate TAB* 25 MG PO SCH ×2 (08:38→12:58)
[2018-04-14] MEDS: Captopril TAB* 25 MG PO SCH ×3 (08:38→21:09)
[2018-04-14] MEDS: Ticagrelor* 90 MG TAB PO SCH ×2 (08:39→21:09)
[2018-04-14] MEDS ORDERED: Metoprolol Tartrate TAB* 25 MG PO SCH (14:00)
[2018-04-14] MEDS: Metoprolol Tartrate TAB* 50 mg PO SCH ×2 (14:28→21:10)
[2018-04-14] MEDS: Atorvastatin* 80 MG TAB PO SCH (16:29)
[2018-04-15] MEDS ORDERED: Lisinopril TAB* 10 MG PO SCH ×2 (09:00)
[2018-04-15] MEDS ORDERED: Hydrochlorothiazide TAB* 25 MG PO SCH (09:00)
[2018-04-15] MEDS ORDERED: Lisinopril/HCTZ 20/25(NF) TAB PO SCH (09:00)
[2018-04-15] MEDS: Aspirin 81 mg CHEW TAB* 81 MG TAB.CHEW PO SCH (09:11)
[2018-04-15] MEDS: Ticagrelor* 90 MG TAB PO SCH (09:12)
[2018-04-15] MEDS: Metoprolol Tartrate TAB* 50 mg PO SCH ×2 (09:12→13:05)
[2018-04-15] MEDS ORDERED: Lisinopril TAB* 10 MG PO ONE (12:07)
[2018-04-15 12:23] VITALS: BP 133/85
--- NOTE | 2018-04-15 14:50 | DS ---
CC: Dr. Valenzuela; Dr. Altagracia Bess * DISCHARGE SUMMARY: DATE OF ADMISSION: 04/12/18 DATE OF DISCHARGE: 04/15/18 PRIMARY CARE PHYSICIAN: Dr. Valenzuela in [place]. DISCHARGE DIAGNOSES: 1. Inferior wall ST elevation infarct. 2. Acute stent thrombosis. 3. Obesity. 4. Obstructive sleep apnea. 5. Hypertension. 6. Hyperlipidemia. CONDITION ON DISCHARGE: Stable. PROCEDURE: Cardiac cath, stent placement RCA, 2 procedures, 2.75 x 15 Xience drug- eluting stent, 3.05 x 16 SYNERGY drug-eluting stent. DISCHARGE MEDICATIONS: 1. Aspirin 81 mg daily. 2. Lipitor 80 mg daily. 3. Lisinopril 40 mg daily. 4. Metoprolol tartrate 50 mg t.i.d. 5. Nitroglycerin 0.4 sublingual p.r.n. 6. Brilinta 90 mg b.i.d. for a minimum of one year without interruption, continue albuterol p.r.n. inhaler. 7. Prilosec 20 mg daily. 8. Fluticasone nasal spray. 9. Lasix 20 mg daily. 10. Vitamin D3. Discontinue Pravachol. He is no longer taking atenolol. HISTORY: See H and P, labs. Post procedure renal function actually improved, creatinine yesterday was 0.95, on 04/13/18 was 0.99. His GFR is 80.9 and 77.1 respectively. His random blood sugar was mildly elevated at 120, 106. I suspect he has a component of metabolic syndrome. His troponin peaked at 50.07, MB peaked at 283.4 with CPK peak of 16.78. His TSH was normal at 4.43, his free T4 was normal at 0.93. His CBC remained stable post cath, on 04/14/18 hemoglobin 13.5, hematocrit 40 with normal platelet count. Electrocardiogram post infarct developed inferior Q-waves as well as inferolateral T-wave inversion. Echocardiogram post revascularization on , reported localized area of hypokinesis of the mid inferolateral segment with overall LVEF of 50% to 55% which is normal. The left atrium was slightly dilated, the right ventricle was mildly dilated with mildly reduced RV systolic function. We were unable to estimate his right ventricular systolic pressure. Screening nocturnal oximetry study was consistent with at least mild obstructive sleep apnea for which he has been recommended to followup with Dr. Way as an outpatient. HOSPITAL COURSE: He presented with acute inferior ST elevation infarct, underwent emergent catheterization with revascularization using a 2.75 x 15 Xience drug- eluting stent in the distal RCA. He received IC Nipride with resolution of chest pain. LV gram was not performed as presenting creatinine was elevated. LVDP was elevated at 20 to 25 mmHg. The very distal end of a small posterolateral branch was occluded, was not pursued because of small size and resolution of a ST elevation as well as essentially resolution of chest pain. Shortly after returning to the ICU, he had recurrence of severe chest pain with ST elevation on the monitor, EKG confirmed inferolateral injury current, he was brought back to the slab off mill tender emergently. He still had a radial band, therefore right femoral approach was used with ultrasound guidance ensuring a single anterior wall puncture in an area where there was no plaque. Angiography confirmed acute right coronary artery thrombosis at the just implanted stent, this was easily crossed, reopened, and stented with an overlapping 3.0 x 16 SYNERGY drug-eluting stent proximal to the first stent. Both stents were then post dilated with a 3.0 NC balloon. His chest pain again improved, as did ST elevation. The right groin was sealed with Angio-Seal which failed, manual compression was used for hematosis. He subsequently developed a large ecchymosis in the right groin but no hematoma or bruit. It is asymptomatic. He has not had any right wrist complications. He had no recurrence of chest pain, heart failure symptoms or arrhythmia in the hospital. He is ambulatory, he is tolerating his medications. He was switched to a high dose potent statin, continued on dual antiplatelet therapy for a minimum of one year, received a 30 day free supply of Brilinta. His RUCHI inhibitor was up titrated to 40 mg daily because of persistent hypertension on lisinopril 20 mg. Today, he is ambulatory with stable vital signs, unremarkable exam. He received full discharge instructions. FOLLOWUP: He will follow up for wound check with Dr. Baron next week, after which he will be referred to one of our noninvasive colleague for ongoing clinical followup, probably at the [facility] office. [id number]/[facility] #: [id number] [facility] HOSPITALMartin
--- NOTE | 2018-04-15 20:54 | CATH ---
CC: Dr. Valenzuela; Dr. Bess * STENT REPORT: DATE OF PROCEDURE: 04/12/18 - ROOM #443 PRIMARY CARE PHYSICIAN: Dr. Valenzuela in [place]. PROCEDURE: Right radial artery access, bilateral selective coronary cineangiography, left heart catheterization, stent placement RCA 2.75 x 15 Xience drug-eluting stent. HISTORY: A 62-year-old male presenting with acute inferior wall ST-elevation infarct. PROCEDURE ACCESS: Right radial artery sheath, 6F Slender. MEDICATIONS: 1. Subcu lidocaine. 2. IV Versed. 3. IV fentanyl. 4. Heparin 3000 units, nitroglycerin 300 mcg, verapamil 3 mg IA. 5. Prehospital, aspirin 324 mg. 6. Heparin 4000 units IV. 7. Brilinta 180 mg p.o. loading dose. 8. IV nitroglycerin drip, titrated. 9. Nipride 1000 mcg post IC, post stenting. DIAGNOSTIC CATHETERS: 5F TIG4, which was also used to measure LV pressure. LV gram was not done because of elevated creatinine. GUIDING CATHETER: 6FR4, wire 14 BMW, which was used to deploy a Xience 2.75 x 15 drug-eluting stent in the distal RCA, postdilated with a 2.75 x 12 NC balloon to 18 atmospheres. HEMODYNAMICS: LV 150/17-25, no aortic valve gradient on pullback. ANGIOGRAPHY: Image quality is somewhat degraded by the patient's morbid obesity with the body weight of approximately 300 pounds. Right brachial artery: There was some resistance to wire advance, angiogram revealed a band in the brachial artery, which was easily traversed with a Wholey wire. Left main: The left main is large, has very minimal distal taper without significant stenosis. LAD: The LAD is moderate, supplies the anteroapical segment; it has luminal irregularity proximally with 30% to 40% stenosis before the first septal plumbing technician followed by tubular 30% stenosis. Circumflex: The circumflex is not dominant, is moderate, there is a large ramus branch, small marginal followed by a larger marginal. The circumflex has mild luminal irregularity, but no significant stenosis. RCA: The RCA is large, dominant, has proximal smooth irregularity, before the crux, there is an 80% stenosis with distal EMANI-3 flow. The PDA origin is not involved. There is luminal irregularity proximal to the significant stenosis. The PDA is moderate followed by a larger posterolateral branch, which has proximal 30% to 40% stenosis. After stent implantation, high pressure postdilatation and IC Nipride 1000 mcg, there was marked improvement in ST elevation, new resolution or resolution of chest pain, and normal distal EMANI-3 flow. There was no residual stenosis, no evidence of thrombus, no evidence of dissection, no loss of branches. Anatomy proximal to the stented segment is unchanged. CONCLUSION: 1. Significant single-vessel disease RCA with distal stenosis with inferior ST - elevation infarct presentation, successful drug-eluting stent placement with adjunctive IC Integrilin with new resolution of ST elevation, new resolution or resolution of chest pain, and distal normal EMANI-3 flow. He has nonobstructive plaquing in the LAD. 2. LV gram was not performed due to renal insufficiency. [id number]/[facility] #: [id number] MTDD
--- NOTE | 2018-04-15 20:54 | CATH ---
CC: Dr. Valenzuela, [place]; Dr. Altagracia Bess * STENT REPORT: DATE OF PROCEDURE: 04/12/18 PRIMARY CARE PHYSICIAN: Dr. Valenzuela in [place]. PROCEDURES: Right common femoral artery access, RCA angiography, stent placement RCA 3 x 16 Synergy drug-eluting stent proximally overlapping the just placed RCA stent. Post dilatation of a 2.75 mm stent with a 3 mm NC balloon. HISTORY: A 62-year-old male with acute inferolateral ST segment elevation presentation, who earlier today underwent catheterization with a finding of a significant RCA stenosis proximal to the crux, which was stented with a 2.75 x 15 Xience drug-eluting stent. Shortly after returning to the ICU, he had recurrence of severe chest pain, had ST elevation on the monitor, confirmed inferolateral injury on a 12-lead EKG. He was brought back emergently to the labeling machine operator for suspected stent thrombosis. The right radial artery was still occluded with a HemoBand, hence right femoral approach was utilized. The patient has morbid obesity, which limits cineangiographic quality and resolution. ACCESS: RFA sheath 6.5 Romanian. MEDICATIONS: 1. IV nitroglycerin drip. 2. Double bolus IV Integrilin. 3. Demerol 25 mg IV. 4. IV Versed. 5. IV fentanyl. 6. Heparin 3000 units. HEMODYNAMICS: AO 145/95. Final 130/99. GUIDING CATHETER: 6FR4, wire 14 BMW, used to deploy a 3 x 16 Synergy drug- eluting stent overlapping the proximal end of the just deployed stent. Because of angiographic under-expansion of the earlier placed stent, it appeared that the stent was undersized compared to the procedure earlier today, it was therefore post dilated with a 3 mm NC balloon 16 atmospheres for 10, 15 for 30, 16 for 30 seconds. ANGIOGRAPHY: Imaging was restricted to the RCA. The RCA again is dominant, large, has proximal luminal irregularity without significant stenosis. The stent from earlier today has thrombosed. After crossing with a wire, there is antegrade flow with residual tubular stenosis within the stent likely due to thrombus. Because of difficulty visualizing fine details due to his morbid obesity and the finding of irregularity at the proximal end of the just placed stent, I elected to place an adjacent overlapping proximal stent. I saw no evidence of distal dissection. After stent deployment and high pressure post dilatation with a 3 mm balloon of the new sent as well as the stent from earlier today, there is EMANI 3 distal flow, several views failed to demonstrate any distal dissection or irregularity. Therefore, distal stent was not deemed necessary. There is at most 20% to 30% stenosis at the stent from earlier today. Antegrade flow was EMANI 3 in the presence of IIb/IIIa inhibitor. Surprisingly, his ACT was relatively low after Integrilin and heparin; however, because of his morbid obesity, I was concerned about giving him excessive heparin because of the groin access. The sheath was closed with Angio-Seal which failed, manual compression was used for hemostasis. He developed a moderate hematoma with a large ecchymosis without any clinical sequelae. CONCLUSION: 1. Acute stent thrombosis, reopened, restented. Suboptimal angiographic resolution due to morbid obesity, but no evident uncovered dissection. 2. Double bolus IV Integrilin. 3. Angio-Seal right common femoral artery unsuccessful, hemostasis achieved with manual compression. [id number]/[facility] #: [id number] CHRISTIAN
[2018-04-16] MEDS ORDERED: Lisinopril TAB* 10 MG PO SCH ×2 (09:00)
== END 2018-04-15 14:04 | disposition home or self-care (01) | DRG 174 ==
LOC: CHICATH 12:32 → ICU 13:53 → MEDTELE 04-14 12:54
PROVIDERS: ADMIT Internal Medicine Cardiovascular Disease; ATTEND Internal Medicine Cardiovascular Disease
PROC: 027034Z Dilation of Coronary Artery, One Artery with Drug-eluting Intraluminal Device, Percutaneous Approach (ICD-10-PCS; 2018-04-12)
PROC: 027034Z Dilation of Coronary Artery, One Artery with Drug-eluting Intraluminal Device, Percutaneous Approach (ICD-10-PCS; 2018-04-12)
PROC: B2101ZZ Fluoroscopy of Single Coronary Artery using Low Osmolar Contrast (ICD-10-PCS; 2018-04-12)
PROC: B2111ZZ Fluoroscopy of Multiple Coronary Arteries using Low Osmolar Contrast (ICD-10-PCS; principal; 2018-04-12 12:30)
DX: I21.19 ST elevation (STEMI) myocardial infarction involving other coronary artery of inferior wall (principal); T82.867A Thrombosis due to cardiac prosthetic devices, implants and grafts, initial encounter; Z68.41 Body mass index [BMI] 40.0-44.9, adult; J45.909 Unspecified asthma, uncomplicated; I12.9 Hypertensive chronic kidney disease with stage 1 through stage 4 chronic kidney disease, or unspecified chronic kidney disease; N18.3 Chronic kidney disease, stage 3 (moderate); E66.01 Morbid (severe) obesity due to excess calories; D75.89 Other specified diseases of blood and blood-forming organs; E78.5 Hyperlipidemia, unspecified; R73.9 Hyperglycemia, unspecified; R58 Hemorrhage, not elsewhere classified; R73.03 Prediabetes; E88.81 Metabolic syndrome and other insulin resistance; I25.10 Atherosclerotic heart disease of native coronary artery without angina pectoris; G47.33 Obstructive sleep apnea (adult) (pediatric); I25.5 Ischemic cardiomyopathy; I49.3 Ventricular premature depolarization; Y71.2 Prosthetic and other implants, materials and accessory cardiovascular devices associated with adverse incidents; Y92.239 Unspecified place in hospital as the place of occurrence of the external cause; Z88.8 Allergy status to other drugs, medicaments and biological substances; Z82.49 Family history of ischemic heart disease and other diseases of the circulatory system; Z87.891 Personal history of nicotine dependence; Z79.51 Long term (current) use of inhaled steroids; Z79.82 Long term (current) use of aspirin
CPT/HCPCS: 36415; 80048; 80053; 81003; 82550; 82553; 83721; 83874; 83880; 84439; 84443; 84484; 85025; 85347; 85610; 85730; 86850; 86900; 86901; 87641; 90686; 93005; 93306; 94762; 99156; 99157; A9270-GY; C1725; C1769; C1876; C1887; C8929; C9606-RC; J1327; J1644; J2175; J2250; J3010

== ENCOUNTER 2018-10-29 19:14 | Observation (INO) | payer OTHER ==
[2018-10-29 19:54] LABS: ABS Basophils 0.1 10^3/ul (0-0.2); ABS Eosinophils 0.2 10^3/ul (0-0.6); ABS Lymphocytes 2.1 10^3/ul (1.0-4.8); ABS Monocytes 0.9 10^3/ul (0-0.8); ABS Neutrophils 7.6 10^3/ul (1.5-7.7); Eosinophil % 2.2 %; Hematocrit 41 % (42-52); Hemoglobin 14.1 g/dL (14.0-18.0); Lymphocyte % 19.7 %; Mean Corpuscular HGB Conc 34 g/dL (31-36); Mean Corpuscular Hemoglobin 33 pg (27-31); Mean Corpuscular Volume 95 fL (80-94); Mean Platelet Volume 8.1 fL (7.4-10.4); Platelet Count 223 10^3/uL (150-450); Red Blood Count 4.32 10^6 /uL (4.18-5.48); Red Cell Distribution Width 13 % (10-15); White Blood Count 10.9 10^3/uL (3.5-10.8)
[2018-10-29 19:59] LABS: INR 0.99 (0.82-1.09)
[2018-10-29 20:08] LABS: Albumin 4.1 g/dL (3.2-5.2); Albumin/Globulin Ratio 1.7 (1-3); BUN/Creatinine Ratio 10.2 (8-20); Calcium 9.8 mg/dL (8.6-10.3); EGFR African American 44.9 (>60); EGFR Non-African American 37.1 (>60); Globulin 2.4 g/dL (2-4); Potassium 4.4 mmol/L (3.5-5.0); Total Bilirubin 0.4 mg/dL (0.2-1.0); Total Protein 6.5 g/dL (6.4-8.9)
[2018-10-29] MEDS ORDERED: Aspirin 81 mg CHEW TAB* 81 MG TAB.CHEW PO ONE (20:10)
--- NOTE | 2018-10-29 20:16 | ED ---
HPI Chest Pain - HPI Summary HPI Summary: This pt is a 63 Y/O M presenting to [facility] with his family and a CC of CP and diaphoresis at 1230 this morning. The episode only lasted 5 minutes. He currently states that he does not have any CP. He stated that he was at a [employer] shop while working and ate part of a calzone when the symptoms started. He denies any N/V/D, SOB, cough, fever, and chills during and after the episode. He stated no alleviating or aggravating factors. He has a PMHx of a heart attack and needed to stents implanted. - History of Current Complaint Chief Complaint: EDChestPainROMI Time Seen by Provider: 10/29/18 20:00 Hx Obtained From: Patient Onset/Duration: Started Hours Ago - 8 hours, Resolved Time of Onset: 12:30 Timing: Lasting Minutes - 5 Initial Severity: Moderate Current Severity: None Pain Intensity: 0 Pain Scale Used: 0-10 Numeric Chest Pain Location: Right Anterior Chest Pain Radiates: No Aggravating Factor(s): Other: - eating a calzone Alleviating Factor(s): Nothing Associated Signs and Symptoms: Positive: Negative - diarrhea, Chest Pain, Diaphoresis. Negative: Shortness of Breath, Fever, Chills, Nausea, Cough, Vomiting - Additional Pertinent History Primary Care Physician: [id number] - Allergy/Home Medications Allergies/Adverse Reactions: Allergies Allergy/AdvReac Type Severity Reaction Status Date / Time nitroglycerin Allergy Unknown Verified 10/29/18 19:24 Reaction Details Home Medications: Home Medications Metoprolol Tartrate TAB* [Lopressor TAB*] 100 mg PO DAILY 10/29/18 [History Confirmed 10/29/18] Sildenafil Citrate [Viagra] 50 mg PO DAILY PRN MDD 50 mg 10/29/18 [History Confirmed 10/29/18] PMH/Surg Hx/FS Hx/Imm Hx Previously Healthy: Yes Endocrine/Hematology History: Denies: Hx Diabetes, Hx Thyroid Disease Cardiovascular History: Reports: Hx Angina, Hx Hypercholesterolemia, Hx Hypertension - controlled with medication, Other Cardiovascular Problems/ Disorders - stent placed 04/13 Denies: Hx Congenital Heart Disease, Hx Coronary Artery Disease, Hx Myocardial Infarction, Hx Valvular Heart Disease Respiratory History: Reports: Hx Asthma Denies: Hx Chronic Obstructive Pulmonary Disease (COPD) GI History: Denies: Hx Ulcer History: Reports: Hx Chronic Renal Failure - EKD stage 3 Denies: Hx Dialysis, Hx Renal Disease Sensory History: Denies: Hx Contacts or Glasses, Hx Hearing Aid Opthamlomology History: Denies: Hx Contacts or Glasses Psychiatric History: Denies: Hx Panic Disorder - Surgical History Surgery Procedure, Year, and Place: "Face stuff removed"-moles-benign. [place] w/ stent 04/2018 - Immunization History Date of Tetanus Vaccine: utd Date of Influenza Vaccine: utd Infectious Disease History: No Infectious Disease History: Denies: Hx Clostridium Difficile, Hx Hepatitis, Hx Human Immunodeficiency Virus (HIV), Hx of Known/Suspected MRSA, Hx Shingles, Hx Tuberculosis, History Other Infectious Disease, Traveled Outside the [place] in Last 30 Days - Family History Known Family History: Positive: Other - Father had pacemaker ~60 y/o - Social History Alcohol Use: None Hx Substance Use: No Substance Use Type: Reports: None Hx Tobacco Use: Yes Smoking Status (MU): Former Smoker Type: Cigarettes Have You Smoked in the Last Year: No Review of Systems Positive: Skin Diaphoresis. Negative: Fever, Chills Positive: Chest Pain Negative: Shortness Of Breath, Cough Negative: Vomiting, Diarrhea, Nausea All Other Systems Reviewed And Are Negative: Yes Physical Exam - Summary Physical Exam Summary: VITAL SIGNS: Reviewed. GENERAL: Patient is a well-developed and morbidly obese male who is lying comfortable in the stretcher. Patient is not in any acute respiratory distress. HEAD AND FACE: No signs of trauma. No ecchymosis, hematomas or skull depressions. No sinus tenderness. EYES: PERRLA, EOMI x 2, No injected conjunctiva, no nystagmus. EARS: Hearing grossly intact. Ear canals and tympanic membranes are within normal limits. MOUTH: Oropharynx within normal limits. NECK: Supple, trachea is midline, no adenopathy, no JVD, no carotid bruit, no c- spine tenderness, neck with full ROM CHEST: Symmetric, no tenderness at palpation LUNGS: Clear to auscultation bilaterally. No wheezing or crackles. CVS: Regular rate and rhythm, S1 and S2 present, no murmurs or gallops appreciated. ABDOMEN: Soft, non-tender. No signs of distention. No rebound no guarding, and no masses palpated. Bowel sounds are normal. EXTREMITIES: FROM in all major joints, no edema, no cyanosis or clubbing. NEURO: Alert and oriented x 3. No acute neurological deficits. Speech is normal and follows commands. SKIN: Dry and warm Triage Information Reviewed: Yes Vital Signs On Initial Exam: Initial Vitals Temp Pulse Resp BP Pulse Ox 97.9 F 67 18 136/70 97 10/29/18 19:20 10/29/18 19:20 10/29/18 19:20 10/29/18 19:20 10/29/18 19:20 Vital Signs Reviewed: Yes Diagnostics - Vital Signs Vital Signs Temp Pulse Resp BP Pulse Ox 10/29/18 19:20 97.9 F 67 18 136/70 97 - Laboratory Lab Results: Lab Results 10/29/18 10/29/18 10/29/18 Range/Units 19:40 19:40 19:40 WBC 10.9 H (3.5-10.8) 10^3/uL RBC 4.32 (4.18-5.48) 10^6 /uL Hgb 14.1 (14.0-18.0) g/dL Hct 41 L (42-52) % MCV 95 H (80-94) fL MCH 33 H (27-31) pg MCHC 34 (31-36) g/dL RDW 13 (10-15) % Plt Count 223 (150-450) 10^3/uL MPV 8.1 (7.4-10.4) fL Neut % (Auto) 69.6 % Lymph % (Auto) 19.7 % Payne % (Auto) 7.9 % Eos % (Auto) 2.2 % Baso % (Auto) 0.6 % Absolute Neuts (auto) 7.6 (1.5-7.7) 10^3/ul Absolute Lymphs (auto) 2.1 (1.0-4.8) 10^3/ul Absolute Monos (auto) 0.9 H (0-0.8) 10^3/ul Absolute Eos (auto) 0.2 (0-0.6) 10^3/ul Absolute Basos (auto) 0.1 (0-0.2) 10^3/ul Absolute Nucleated RBC 0.0 10^3/ul Nucleated RBC % 0.0 INR (Anticoag Therapy) 0.99 (0.82-1.09) Sodium 138 (135-145) mmol/L Potassium 4.4 (3.5-5.0) mmol/L Chloride 102 (101-111) mmol/L Carbon Dioxide 27 (22-32) mmol/L Anion Gap 9 (2-11) mmol/L BUN 19 (6-24) mg/dL Creatinine 1.86 H (0.67-1.17) mg/dL Est GFR ( Amer) 44.9 (>60) Est GFR (Non-Af Amer) 37.1 (>60) BUN/Creatinine Ratio 10.2 (8-20) Glucose 114 H (70-100) mg/dL Calcium 9.8 (8.6-10.3) mg/dL Total Bilirubin 0.40 (0.2-1.0) mg/dL AST 21 (13-39) U/L ALT 26 (7-52) U/L Alkaline Phosphatase 73 (34-104) U/L Troponin I 0.00 (<0.04) ng/mL Total Protein 6.5 (6.4-8.9) g/dL Albumin 4.1 (3.2-5.2) g/dL Globulin 2.4 (2-4) g/dL Albumin/Globulin Ratio 1.7 (1-3) Result Diagrams: 10/29/18 19:40 10/29/18 19:40 Lab Statement: Any lab studies that have been ordered have been reviewed, and results considered in the medical decision making process. - EKG 1916 Cardiac Rate: NL - 70 BPM EKG Rhythm: Sinus Rhythm Ectopy: None Summary of EKG Findings: Sinus rhythm of 70 BPM, Q waves in inferior leads Normal interval. No ischemic changes[place] [address]/29/18. Chest Pain Course/Dx - Course Course Of Treatment: This pt is a 63 Y/O M presenting to [facility] with his family and a CC of CP and diaphoresis at 1230 this morning. The episode only lasted 5 minutes. He currently states that he does not have any CP. He stated that he was at a [employer] shop while working and ate part of a calzone when the symptoms started. His PE found that he was morbidly obese but there were no other abnormalities. His EKG showed that he has a Sinus rhythm of 70 BPM, Q waves in inferior leads Normal interval. No ischemic changes. The pt will be admitted to [facility] overnight by Dr. Mcgregor, Hospitalist, for further investigations with a Dx of chest pain. - Diagnoses Provider Diagnoses: Chest pain - Provider Notifications Discussed Care Of Patient With: Aliza Mcgregor Time Discussed With Above Provider: 20:19 Instructed by Provider To: Admit As Inpatient Discharge - Sign-Out/Discharge Documenting (check all that apply): Patient Departure - admitted Patient Received Moderate/Deep Sedation with Procedure: No - Discharge Plan Condition: Stable Disposition: ADMITTED TO [facility] Referrals: Heidy Valenzuela MD [Primary Care Provider] - - Attestation Statements Document Initiated by Scribe: Yes Documenting Scribe: Lenny Meeks Provider For Whom Scribe is Documenting (Include Credential): Milli Bowden MD Scribe Attestation: Lenny Grewal, scribed for Milli Bowden MD on 10/29/18 at 2018. Status of Scribe Document: Ready
[2018-10-29] MEDS ORDERED: Acetaminophen TAB* 325 MG PO PRN (20:44)
[2018-10-29] MEDS ORDERED: Al Hydrox/Mg Hydrox/Simet LIQ* 30 ML UDC PO PRN (20:44)
[2018-10-29] MEDS ORDERED: Albuterol HFA INHALER* 8 gm MDI INH PRN (20:46)
[2018-10-29] MEDS ORDERED: Nitroglycerin TAB 0.4 MG* 0.4 MG TAB SL PRN (20:46)
[2018-10-29] MEDS: Ticagrelor* 90 MG TAB PO SCH (22:02)
[2018-10-29] MEDS: Heparin VIAL(*) 5000 UNITS/ML VIAL (FIVE THOUSAND) SUBCUT SCH (22:58)
--- NOTE | 2018-10-29 23:59 | HP ---
CC: Dr. Valenzuela, Dr. Barclay * HISTORY AND PHYSICAL: DATE OF ADMISSION: 10/29/18 TIME OF ADMISSION: 8:45 p.m. CHIEF COMPLAINT: Chest pain. HISTORY OF PRESENT ILLNESS: This is a 63-year-old man with history of coronary artery disease who presented to the emergency department this evening after an episode of chest pain that occurred at lunchtime today. 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 He got drenched in sweat and had a prickly feeling down both arms. He rested and tried to relax and the pain went away on it's own without any intervention. He had a nitroglycerin ready to take, but he did not have to take it and it went away without it. Since then the pain has not returned and he is currently chest pain free. He has been working out full capacity and has not gotten chest pain with exertion and has not been sick recently. He denies any recent weight gain or weight loss. Denies recent cough, cold, sore throat, fevers, nausea, vomiting, constipation, or diarrhea. He does note some pain in his groin and wonders if he has a "prostate problem." PAST MEDICAL HISTORY: 1. Coronary artery disease status post a drug eluting stent to his RCA in April 2018 which was complicated by acute stent thrombosis and he got a drug eluting stent overlapping proximally to prior stent. 2. Obesity. 3. Erectile dysfunction. 4. Heart failure with preserved ejection fraction. PAST SURGICAL HISTORY: He had a lung biopsy. HOME MEDICATIONS: 1. Atorvastatin 80 mg q.h.s. 2. Sildenafil 50 mg q.h.s. p.r.n., ED. 3. Lasix 20 mg daily. 4. Lisinopril 40 mg daily. 5. Toprol 100 mg daily. 6. Aspirin 81 mg daily. 7. Brilinta 90 mg b.i.d. 8. Nitroglycerin sublingual p.r.n. chest pain. FAMILY HISTORY: His father has a pacemaker, but he does not know why. His father also had prostate cancer. 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 He lives with his . He quit tobacco 2 years ago and he does not drink alcohol. REVIEW OF SYSTEMS: As per the HPI. Remainder of the 8-point review of systems is negative. PHYSICAL EXAMINATION GENERAL: Alert, tanned, comfortable appearing man who is obese and resting with his and daughter at the beside. VITAL SIGNS: Temperature 97.9, heart rate 70, respiratory rate 18, pulse ox 97 % on room air, blood pressure 136/70. HEENT: Pupils are 3 mm bilaterally and reactive to light. Oral mucosa is dry. NECK: No JVP. CHEST: Regular rate and rhythm with no murmurs. LUNGS: Clear bilaterally. No wheezes or rhonchi. ABDOMEN: Obese, protuberant, nontender. His liver and spleen or not palpable. No CVA tenderness. EXTREMITIES: He has 1+ pitting edema to the knees. SKIN: Intact. DIAGNOSTIC STUDIES/LAB DATA: White blood cell 7.9, hemoglobin 14.1, platelets 223. INR 0.99. Sodium 138, potassium 4.4, chloride 102, BUN 19, creatinine 1.86 , glucose 114. Troponin 0.00. EKG, normal sinus rhythm. Normal intervals. Qs and II, III, and aVF which were old from April 2018, T-wave inversions in III and aVF. Chest x-ray to my read shows a normal size heart, no pneumothorax, no effusions and some pulmonary vascular congestion. ASSESSMENT AND PLAN: This is a 63-year-old man with history of coronary artery disease, who presents to the emergency department after an episode of chest pain that occurred at lunch today. 1. Chest pain: His pain has some typical and atypical features; however, given his high risk history I am admitting him to observation and monitoring him on telemetry overnight. On his cardiac catheterization in April 2018, he had nonobstructing coronary disease in other vessels, but repeat stress test could be considered tomorrow. I will trend his troponins, keep him chest pain free, and continue his home medicine regimen with statin, aspirin, Brilinta, Toprol and nitroglycerin p.r.n. The differential for his chest pain also includes a GI source and I will give him p.r.n. Maalox. He has already received an aspirin in the ED. 2. 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 I am not giving him any fluids and will allow him to drink p.o. and recheck his creatinine in the morning and I am holding his Lasix and his lisinopril. 3. Heart failure with preserved ejection fraction. I am holding his Lasix due to acute kidney injury. 4. DVT prophylaxis. Heparin subcu. 5. Disposition: Admit to [address] [place] [address] for telemetry. I am making him NPO after midnight for a nuclear stress test tomorrow. [id number]/[facility] #: [id number] CHRISTIAN
[2018-10-30] MEDS: Heparin VIAL(*) 5000 UNITS/ML VIAL (FIVE THOUSAND) SUBCUT SCH ×3 (05:22→21:23)
[2018-10-30 06:17] LABS: ABS Basophils 0.1 10^3/ul (0-0.2); ABS Eosinophils 0.3 10^3/ul (0-0.6); ABS Lymphocytes 1.7 10^3/ul (1.0-4.8); ABS Monocytes 0.7 10^3/ul (0-0.8); ABS Neutrophils 5.9 10^3/ul (1.5-7.7); Eosinophil % 3.2 %; Hematocrit 43 % (42-52); Hemoglobin 14.7 g/dL (14.0-18.0); Lymphocyte % 19.8 %; Mean Corpuscular HGB Conc 34 g/dL (31-36); Mean Corpuscular Hemoglobin 32 pg (27-31); Mean Corpuscular Volume 95 fL (80-94); Mean Platelet Volume 8.1 fL (7.4-10.4); Platelet Count 217 10^3/uL (150-450); Red Blood Count 4.57 10^6 /uL (4.18-5.48); Red Cell Distribution Width 13 % (10-15); White Blood Count 8.7 10^3/uL (3.5-10.8)
[2018-10-30 06:32] LABS: BUN/Creatinine Ratio 14.8 (8-20); Calcium 9.4 mg/dL (8.6-10.3); EGFR African American 69.1 (>60); EGFR Non-African American 57.1 (>60); HDL Cholesterol 39.5 mg/dL; Potassium 4.3 mmol/L (3.5-5.0)
[2018-10-30] MEDS: Ticagrelor* 90 MG TAB PO SCH ×2 (09:30→21:23)
[2018-10-30] MEDS: Aspirin EC TAB* 81 MG TAB.EC PO SCH (09:31)
[2018-10-30] MEDS: Cholecalciferol TAB* 1000 UNITS PO SCH (09:31)
[2018-10-30] MEDS ORDERED: Regadenoson* 0.4 MG/5 ML SYRINGE ONE (10:42)
[2018-10-30] MEDS ORDERED: Aminophylline IV* 25 MG/ML 10 ML VIAL ONE (10:43)
[2018-10-30] MEDS: Metoprolol Succinate XL TAB* 100 MG PO SCH (12:57)
--- NOTE | 2018-10-30 13:40 | PN ---
Subjective Date of Service: 10/30/18 Interval History: Pt feels well. c/o no CP or SOB. Objective Active Medications: Acetaminophen (Tylenol Tab*) 650 mg PO Q4H PRN PRN Reason: FEVER/PAIN Al Hydrox/Mg Hydrox/Simethicone (Maalox Plus*) 30 ml PO Q6H PRN PRN Reason: INDIGESTION Albuterol (Ventolin Hfa Inhaler*) 1 puff INH Q6H PRN PRN Reason: SHORTNESS OF BREATH Aspirin (Aspirin Ec Tab*) 81 mg PO DAILY [facility] Last Admin: 10/30/18 09:31 Dose: 81 mg Atorvastatin Calcium (Lipitor*) 80 mg PO 1700 [facility] Cholecalciferol (Vitamin D Tab*) 1,000 units PO DAILY [facility] Last Admin: 10/30/18 09:31 Dose: 1,000 units Heparin Sodium (Porcine) (Heparin Vial(*)) 5,000 units SUBCUT Q8HR [facility] Last Admin: 10/30/18 05:22 Dose: 5,000 units Metoprolol Succinate (Toprol Xl Tab*) 100 mg PO DAILY [facility] Last Admin: 10/30/18 12:57 Dose: 100 mg Nitroglycerin (Nitroglycerin Tab 0.4 Mg*) 0.4 mg SL Q5M PRN PRN Reason: ANGINA Ticagrelor (Brilinta*) 90 mg PO BID [facility] Last Admin: 10/30/18 09:30 Dose: 90 mg Vital Signs - 8 hr 10/30/18 10/30/18 10/30/18 07:13 07:33 12:12 Temperature 97.3 F 98.1 F Pulse Rate 65 75 Respiratory 14 16 12 Rate Blood Pressure 126/75 144/82 (mmHg) O2 Sat by Pulse 96 98 Oximetry Oxygen Devices in Use Now: None Appearance: 63 yo M in NAD, AAOx3 Eyes: No Scleral Icterus, PERRLA Ears/Nose/Mouth/Throat: NL Teeth, Lips, Gums, Mucous Membranes Moist Neck: NL Appearance and Movements; NL JVP, Trachea Midline Respiratory: Symmetrical Chest Expansion and Respiratory Effort, Clear to Auscultation Cardiovascular: NL Sounds; No Murmurs; No JVD Abdominal: NL Sounds; No Tenderness; No Distention Lymphatic: No Cervical Adenopathy Extremities: No Clubbing, Cyanosis, - - trace ankle edema b/l Skin: No Rash or Ulcers, No Nodules or Sclerosis Neurological: Alert and Oriented x 3, NL Muscle Strength and Tone Result Diagrams: 10/30/18 05:49 10/30/18 05:49 Additional Lab and Data: Lab Results 10/29/18 10/29/18 10/29/18 Range/Units 19:40 19:40 19:40 WBC 10.9 H (3.5-10.8) 10^3/uL RBC 4.32 (4.18-5.48) 10^6 /uL Hgb 14.1 (14.0-18.0) g/dL Hct 41 L (42-52) % MCV 95 H (80-94) fL MCH 33 H (27-31) pg MCHC 34 (31-36) g/dL RDW 13 (10-15) % Plt Count 223 (150-450) 10^3/uL MPV 8.1 (7.4-10.4) fL Neut % (Auto) 69.6 % Lymph % (Auto) 19.7 % [place] % (Auto) 7.9 % Eos % (Auto) 2.2 % Baso % (Auto) 0.6 % Absolute Neuts (auto) 7.6 (1.5-7.7) 10^3/ul Absolute Lymphs (auto) 2.1 (1.0-4.8) 10^3/ul Absolute Monos (auto) 0.9 H (0-0.8) 10^3/ul Absolute Eos (auto) 0.2 (0-0.6) 10^3/ul Absolute Basos (auto) 0.1 (0-0.2) 10^3/ul Absolute Nucleated RBC 0.0 10^3/ul Nucleated RBC % 0.0 INR (Anticoag Therapy) 0.99 (0.82-1.09) Sodium 138 (135-145) mmol/L Potassium 4.4 (3.5-5.0) mmol/L Chloride 102 (101-111) mmol/L Carbon Dioxide 27 (22-32) mmol/L Anion Gap 9 (2-11) mmol/L BUN 19 (6-24) mg/dL Creatinine 1.86 H (0.67-1.17) mg/dL Est GFR ( Amer) 44.9 (>60) Est GFR (Non-Af Amer) 37.1 (>60) BUN/Creatinine Ratio 10.2 (8-20) Glucose 114 H (70-100) mg/dL Calcium 9.8 (8.6-10.3) mg/dL Total Bilirubin 0.40 (0.2-1.0) mg/dL AST 21 (13-39) U/L ALT 26 (7-52) U/L Alkaline Phosphatase 73 (34-104) U/L Troponin I 0.00 (<0.04) ng/mL Total Protein 6.5 (6.4-8.9) g/dL Albumin 4.1 (3.2-5.2) g/dL Globulin 2.4 (2-4) g/dL Albumin/Globulin Ratio 1.7 (1-3) Assess/Plan/Problems-Billing Assessment: 63 yo M with h/o RCA stenting in 04/2018 presented with CP - Patient Problems (1) Chest pain Comment: troponins are negative so far. Prelin report of stress test shows inferior wall changes. Pt will need to stay for resting portion of stress in AM (2) Hypertension Comment: BP controlled off meds (3) CAD (coronary artery disease) Comment: cont ASA/Brilinta (4) Dyslipidemia Comment: LDL 42, cont Lipitor (5) ELOY (acute kidney injury) Comment: creat up at 1.8 at admission. Likely prerenal. Also pt takes Lasix prn , but he had been taking it daily despite no sig leg edema and working outside and sweating a lot. Down to 1.2 after ACEI, furosemide was held. cont holding ACEI and diuretic (6) DVT prophylaxis Comment: HSQ Status and Disposition: OBV
[2018-10-30] MEDS ORDERED: Atorvastatin* 80 MG TAB PO SCH (17:00)
[2018-10-31] MEDS: Heparin VIAL(*) 5000 UNITS/ML VIAL (FIVE THOUSAND) SUBCUT SCH (05:25)
[2018-10-31 06:27] LABS: BUN/Creatinine Ratio 15.6 (8-20); Calcium 9.1 mg/dL (8.6-10.3); EGFR African American 83.2 (>60); EGFR Non-African American 68.8 (>60); Potassium 4.4 mmol/L (3.5-5.0)
[2018-10-31] MEDS: Aspirin EC TAB* 81 MG TAB.EC PO SCH (09:15)
[2018-10-31] MEDS: Metoprolol Succinate XL TAB* 100 MG PO SCH (09:16)
[2018-10-31] MEDS: Cholecalciferol TAB* 1000 UNITS PO SCH (09:16)
[2018-10-31] MEDS: Ticagrelor* 90 MG TAB PO SCH (09:16)
[2018-10-31 12:38] VITALS: BP 135/92
--- NOTE | 2018-10-31 13:46 | DS ---
CC: Dr. Heidy Valenzuela; Dr. Eren Barclay DISCHARGE SUMMARY: DATE OF ADMISSION: 10/29/18 DATE OF DISCHARGE: 10/31/18, to home. PRIMARY CARE PROVIDER: Dr. Heidy Valenzuela. OREMAN: Dr. Eren Barclay. DISPOSITION ON DISCHARGE: To home. CONDITION ON DISCHARGE: Stable. DISCHARGE DIAGNOSES: 1. Chest pain with acute coronary syndrome ruled out. It is likely related to gastrointestinal symp toms. 2. Acute kidney injury likely the prerenal causes. SECONDARY DIAGNOSES: 1. History of coronary artery disease, status post stenting in April 2018. 2. History of obesity. 3. Hypertension. 4. History of diastolic congestive heart failure with preserved ejection fraction. MEDICATIONS AT DISCHARGE: Include: 1. Albuterol inhaler on a p.r.n. basis. 2. Vitamin D3 1000 units daily. 3. Metoprolol tartrate 100 mg daily. 4. Viagra 50 mg daily. 5. Aspirin 81 mg daily. 6. Atorvastatin 80 mg daily. 7. Furosemide 20 mg daily for leg edema or for weight gain above 3 pounds. 8. Lisinopril 40 mg daily. 9. Nitroglycerin on a p.r.n. basis. 10. Brilinta 90 mg daily. LABORATORY DATA AND STUDIES PERFORMED DURING HOSPITAL STAY: Included: On 10/30/18, white blood cell count of 8.7, hemoglobin of 14.7, hematocrit of 43, and platelets was 217. On 10/31/18, sodium of 137, potassium 4.4, chloride 106, carbon dioxide 25, BUN 17, creatinine 1.09. Fasting lipid profile obtained on 10/30/18 showed triglycerides of 120, cholesterol total of 105, LDL of 42 and HDL of 39. Nuclear medicine cardiac stress test documented on 10/31/18, impression: "EF 58% with stress, 34% wi th rest. End-diastolic volume is 140 mL. TID 0.93. Motion, there was inferior wall hypokinesia. P erfusion, there is moderate sized fixed defects of the inferior wall extending to the apex. Impressi on: Fixed defect of the inferior wall towards the apex consistent with previous infarct." Assessmen t was intermediate risk. HOSPITALIZATION COURSE: Stephen Marc is a 63-year-old male with history of obesity and hypertension, who presented to the hospital with complaints of chest pain. 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 He drank a lot of it, it was also cold. Subsequently, she started exper iencing pain in his chest, there was pressure, different from his heart attack pain radiating to his back. He stated that it is felt like "internal belch" but he did not burp. It lasted seconds. He c diana into the ED for evaluation. Due to his recent history of cardiac stenting, he was placed on over night observation with planned stress test. Unfortunately due to his weight, his stress test had to be a 2 days . His troponins ruled out with maximum troponin of 0.01. He longer experienced princess st pain. His stress test showed fixed inferior wall ischemia, which is consistent with the patient's history of RCA, acute OR in April 2018. The patient also was noted to have creatinine of 1.86 at admission. The patient stated that he had b een "sweating buckets" since the outside temperature was 90 degrees and he was working outside. He s tated that he did manage to drink a 16 ounce of water over the course of his 8-hour work day before a dmission. He also stated that that he had used Lasix on as needed basis for leg edema, but he had be en using it daily for the past at least a week. His Lasix was stopped as well as his lisinopril was held. His creatinine went back to 1.09 which is the patient's baseline. At this point, I suspect th at the patient's acute kidney injury was likely due to prerenal causes. We educated the patient to u se his Lasix only on as needed basis for leg edema or weight gain of above 3 pounds. On the day of discharge, the patient stated that he needed to be discharged, so he can go to [facility] to have a big steak. We spoke a little bit about his diet. His BMI is 42. I stressed the i mportance of trying to give up something to be able to live longer. The patient appears very convinc ed that he is not able to limit his food intake to lower his quality of life. Once again, he is erum g to think about it at home what he could give up to be able to lose some weight and be healthier. PHYSICAL EXAMINATION: At the time of discharge, blood pressure of 128/89, heart rate of 62 and regul ar, respiratory rate of 12, oxygen saturation 98% on room air, and temperature 97.5. General: The axel flanagan is a very pleasant 63-year-old obese male, who is in no acute distress. Alert, awake, and ifrah ented x3. HEENT: Head: Atraumatic and normocephalic. Eyes: Pupils are equal, reactive to light an d accommodation. Oropharynx clear. Mucosa moist. Neck: Supple. No JVD. No bruits bilaterally. Cardiovascular: Regular rate and rhythm. No murmur. Respiratory: Clear to auscultation bilaterally . Abdomen: Soft and nontender. Bowel sounds present in all 4 quadrants. Extremities: There is tra ce bilateral ankle edema. Pulses are +2 bilaterally. No clubbing or cyanosis. Neuro Evaluation: S peech is clear. Cranial nerves II through XII are grossly intact. Motor strength is 5/5 bilaterally. At discharge, the patient is recommended to follow up with Dr. 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 Please note that this is a short summary of the patient's hospital stay. Please refer to the further medical records for details. TIME SPENT: Approximately 45 minutes was spent in preparation of the discharge. [id number]/[facility] #: [id number]
== END 2018-10-31 14:00 | disposition home or self-care (01) ==
LOC: ED 19:14 → MEDTELE 20:44
PROVIDERS: ADMIT Internal Medicine; ATTEND Internal Medicine
DX: R07.9 Chest pain, unspecified (principal); N17.9 Acute kidney failure, unspecified; I25.119 Atherosclerotic heart disease of native coronary artery with unspecified angina pectoris; E66.9 Obesity, unspecified; I11.0 Hypertensive heart disease with heart failure; I50.9 Heart failure, unspecified; E78.5 Hyperlipidemia, unspecified; E78.00 Pure hypercholesterolemia, unspecified; Z79.82 Long term (current) use of aspirin; Z79.899 Other long term (current) drug therapy; N52.9 Male erectile dysfunction, unspecified; Z87.891 Personal history of nicotine dependence
CPT/HCPCS: 36415; 71045; 78452; 80048; 80053; 80061; 83036; 83880; 84484; 85025; 85610; 93005; 93017; 96372; 99284; A9270-GY; A9502; G0378; J0280; J1644; J2785

== ENCOUNTER 2019-07-27 09:45 | Emergency (ER) | payer OTHER ==
--- NOTE | 2019-07-27 10:24 | ED ---
Dizziness - HPI Summary HPI Summary: Patient states he awoke this morning with the room spinning. Got up to feed the cat and had recurrent symptoms associated with "cold sweats" and nausea. Denies fever, headache, CP/pressure, SOB, otalgia/tinnitus, abdominal pain. remote history of cardiac stenting. No history of DM/HTN/DVT. No recent URI/ sick contacts. Nonsmoker. - History Of Current Complaint Stated Complaint: SOB, FEVER PER PT Time Seen by Provider: 07/27/19 09:54 Hx Obtained From: Patient Onset/Duration: Gradually Timing: Constant Severity Initially: Moderate Severity Currently: Mild Character: Head Spinning, Room Spinning Aggravating Factor(s): Position Change Alleviating Factor(s): Rest Associated Signs And Symptoms: Positive: Nausea, Chills. Negative: Vomiting, Diarrhea, Tinnitus, Chest Pain, SOB, Palpitations, Unsteady Gait, Visual Changes , Fever, Blood In Stool, Inability to Walk, Slurred Speech - Allergies/Home Medications Allergies/Adverse Reactions: Allergies Allergy/AdvReac Type Severity Reaction Status Date / Time nitroglycerin AdvReac Severe See Comment Verified 07/27/19 10:19 Home Medications: Home Medications Aspirin EC TAB* [Ecotrin EC Low Dose 81 MG*] 81 mg PO DAILY #30 tab.ec 08/30/17 [Rx Confirmed 10/29/18] Albuterol HFA INHALER* [Ventolin HFA Inhaler*] 1 puff INH Q6H PRN 10/06/17 [ History Confirmed 10/29/18] Cholecalciferol (Vitamin D3) [Vitamin D3] 1,000 unit PO DAILY 10/06/17 [History Confirmed 10/29/18] Ticagrelor* [Brilinta 90 MG*] 90 mg PO BID #60 tab 04/13/18 [Rx Confirmed ] Atorvastatin* [Lipitor 80 MG*] 80 mg PO 1700 #90 tab 04/15/18 [Rx Confirmed ] Lisinopril TAB* [Prinivil TAB 10 MG*] 40 mg PO DAILY #90 tab 04/15/18 [Rx Confirmed 10/29/18] Nitroglycerin TAB 0.4 MG* 0.4 mg SL Q5M PRN #20 tab 04/15/18 [Rx Confirmed 10/29] Metoprolol Tartrate TAB* [Lopressor TAB*] 100 mg PO DAILY 10/29/18 [History Confirmed 10/29/18] Sildenafil Citrate [Viagra] 50 mg PO DAILY PRN MDD 50 mg 10/29/18 [History Confirmed 10/29/18] Furosemide TAB* [Lasix TAB*] 20 mg PO DAILY #0 10/31/18 [Rx Confirmed 10/29/18] PMH/Surg Hx/FS Hx/Imm Hx Endocrine/Hematology History: Denies: Hx Diabetes, Hx Thyroid Disease Cardiovascular History: Reports: Hx Angina, Hx Coronary Artery Disease, Hx Hypercholesterolemia, Hx Hypertension - controlled with medication, Other Cardiovascular Problems/Disorders - stent placed 04/13 Denies: Hx Congenital Heart Disease, Hx Myocardial Infarction, Hx Valvular Heart Disease Respiratory History: Reports: Hx Asthma Denies: Hx Chronic Obstructive Pulmonary Disease (COPD) GI History: Denies: Hx Ulcer History: Reports: Hx Chronic Renal Failure - CKD stage 3 Denies: Hx Dialysis, Hx Renal Disease Sensory History: Reports: Hx Contacts or Glasses - Reading glasses Denies: Hx Hearing Aid Opthamlomology History: Reports: Hx Contacts or Glasses - Reading glasses Psychiatric History: Denies: Hx Panic Disorder - Surgical History Surgery Procedure, Year, and Place: "Face stuff removed"-moles-benign. [place] w/ stent 04/2018 - Immunization History Date of Tetanus Vaccine: utd Date of Influenza Vaccine: utd Infectious Disease History: Denies: Hx Clostridium Difficile, Hx Hepatitis, Hx Human Immunodeficiency Virus (HIV), Hx of Known/Suspected MRSA, Hx Shingles, Hx Tuberculosis, History Other Infectious Disease - Family History Known Family History: Positive: Other - Father had pacemaker ~60 y/o - Social History Alcohol Use: None Hx Substance Use: No Substance Use Type: Reports: None Hx Tobacco Use: Yes Smoking Status (MU): Former Smoker Type: Cigarettes Have You Smoked in the Last Year: No Review of Systems Positive: Chills. Negative: Fever Eyes: Other - negative - visual changes ENT: Other - negative - tinnitus Negative: Palpitations, Chest Pain Negative: Shortness Of Breath Gastrointestinal: Other - negative - blood in stool Positive: Nausea. Negative: Vomiting, Diarrhea Positive: Other - negative - unsteady gait, inability to walk Neurological/Mental Status: Other - positive - dizziness Negative: Slurred Speech All Other Systems Reviewed And Are Negative: Yes Physical Exam - Summary Physical Exam Summary: Constitutional: Well-developed, Well-nourished, Alert. (-) Distressed Skin: Warm, Dry HENT: Normocephalic; Atraumatic Eyes: Conjunctiva normal Neck: Musculoskeletal ROM normal neck. (-) JVD, (-) Stridor, (-) Tracheal deviation Cardio: Rhythm regular, rate normal, Heart sounds normal; Intact distal pulses; The pedal pulses are 2+ and symmetric. Radial pulses are 2+ and symmetric. (-) Murmur Pulmonary/Chest wall: Effort normal. (-) Respiratory distress, (-) Wheezes, (-) Rales Abd: Soft, (-) tenderness, (-) Distension, (-) Guarding, (-) Rebound Musculoskeletal: (-) Edema Lymph: (-) Cervical adenopathy Neuro: Alert, Oriented x3 Psych: Mood and affect Normal Triage Information Reviewed: Yes Vital Signs Reviewed: Yes Procedures - Sedation Patient Received Moderate/Deep Sedation with Procedure: No Diagnostics - Laboratory Result Diagrams: 07/27/19 10:52 07/27/19 10:52 Lab Statement: Any lab studies that have been ordered have been reviewed, and results considered in the medical decision making process. - Radiology Xray chest Radiology Interpretation Completed By: Radiologist Summary of Radiographic Findings: IMPRESSION: PULMONARY VASCULAR CONGESTION. NO ACTIVE CARDIOPULMONARY DISEASE. This report was reviewed by Dr. Long. - EKG 1057 Cardiac Rate: NL EKG Rhythm: Sinus Rhythm ST Segment: Normal Ectopy: None Summary of EKG Findings: EKG at 1057 shows NSR at 62bpm. Normal intervals. No STEMI. This EKG was reviewed and interpreted by Dr. Long. Dizzy Course/Dx - Course Course Of Treatment: Patient states he awoke this morning with the room spinning. Got up to feed the cat and had recurrent symptoms associated with "cold sweats" and nausea. Denies fever, headache, CP/pressure, SOB, otalgia/ tinnitus, abdominal pain. remote history of cardiac stenting. No history of DM /HTN/DVT. No recent URI/sick contacts. Nonsmoker. Exam showed was normal. Labs showed MCH 32, abs lymphs 0.8, Na 133, Glc 146. EKG at 1057 shows NSR at 62bpm. Normal intervals. No STEMI. X-ray chest showed PULMONARY VASCULAR CONGESTION. NO ACTIVE CARDIOPULMONARY DISEASE. Patient is ambulatory with steady gait, no evidence of ACS or CVA. Patient feels comfortable with discharge home. Encouraged to follow up with PCP this coming week. Pt was diagnosed with dizziness; and discharged to home. - Diagnoses Provider Diagnoses: Dizziness - Critical Care Time Critical Care Statement: Critical care time is provided exclusive of any time spent performing procedures. Discharge ED - Sign-Out/Discharge Documenting (check all that apply): Patient Departure - dc - Discharge Plan Condition: Stable Disposition: HOME Patient Education Materials: Dizziness (ED) Print Language: UPPER SORBIAN Referrals: Heidy Valenzuela MD [Primary Care Provider] - Additional Instructions: Follow up with your primary care provider in 1-3 days. If you experience new or worsening symptoms please return to the ER. - Billing Disposition and Condition Condition: STABLE Disposition: Home - Attestation Statements Document Initiated by Artemioibe: Yes Documenting Scribe: Isaias Arnold Provider For Whom Scribe is Documenting (Include Credential): Carlos Long DO Scribe Attestation: Isaias Grewal scribed for Carlos Long DO on 07/27/19 at 1637. Scribe Documentation Reviewed: Yes Provider Attestation: The documentation as recorded by the Isaias toscano accurately reflects the service I personally performed and the decisions made by Carlos bocanegra DO Status of [place] Document: Viewed
[2019-07-27 11:09] LABS: ABS Basophils 0.1 10^3/ul (0-0.2); ABS Eosinophils 0.1 10^3/ul (0-0.6); ABS Lymphocytes 0.8 10^3/ul (1.0-4.8); ABS Monocytes 0.3 10^3/ul (0-0.8); Hematocrit 43 % (42-52); Hemoglobin 14.7 g/dL (14.0-18.0); Lymphocyte % 9.5 %; Mean Corpuscular HGB Conc 34 g/dL (31-36); Mean Corpuscular Hemoglobin 32 pg (27-31); Mean Corpuscular Volume 94 fL (80-94); Nucleated Red Blood Cells % 0.1; Platelet Count 225 10^3/uL (150-450); Red Blood Count 4.62 10^6 /uL (4.18-5.48); Red Cell Distribution Width 13 % (10-15); White Blood Count 8.2 10^3/uL (3.5-10.8)
[2019-07-27 11:30] LABS: Albumin/Globulin Ratio 1.4 (1-3); BUN/Creatinine Ratio 14.2 (8-20); EGFR African American 85.9 (>60); Globulin 2.8 g/dL (2-4); Potassium 4.8 mmol/L (3.5-5.0); Total Bilirubin 0.5 mg/dL (0.2-1.0); Total Protein 6.8 g/dL (6.4-8.9)
[2019-07-27 14:28] LABS: Urine Appearance Clear; Urine Bilirubin Negative (Negative); Urine Blood Negative (Negative); Urine Color Yellow; Urine Glucose Negative (Negative); Urine Ketones Negative (Negative); Urine Nitrite Negative (Negative); Urine Protein Negative (Negative); Urine Specific Gravity 1.025 (1.010-1.030); Urine Urobilinogen Negative (Negative)
[2019-07-27 15:30] VITALS: BP 140/72
== END 2019-07-27 15:25 | disposition home or self-care (01) ==
LOC: ED 09:45
DX: R42 Dizziness and giddiness (principal); Z87.891 Personal history of nicotine dependence; I25.10 Atherosclerotic heart disease of native coronary artery without angina pectoris; E78.00 Pure hypercholesterolemia, unspecified; I10 Essential (primary) hypertension; J45.909 Unspecified asthma, uncomplicated; R09.89 Other specified symptoms and signs involving the circulatory and respiratory systems; Z79.82 Long term (current) use of aspirin
CPT/HCPCS: 36415; 71045; 80053; 81003; 83880; 84484; 85025; 93005; 99283

== ENCOUNTER 2023-12-23 09:44 | Inpatient (IN) ==
[2023-12-23 10:55] LABS: ABS Basophils 0.1 10^3/uL (0.0-0.1); ABS Lymphocytes 0.6 10^3/uL (1.0-4.8); ABS Monocytes 0.5 10^3/uL (0.0-1.1); ABS Neutrophils 7.9 10^3/uL (1.5-7.6); Eosinophil % 0.3 %; Hematocrit 42.1 % (38-53); Hemoglobin 13.3 g/dL (13.2-16.3); Lymphocyte % 6.7 %; Mean Corpuscular Hemoglobin 27.4 pg (27-33); Mean Corpuscular Hgb Conc 31.5 g/dL (31-36); Mean Corpuscular Volume 87.1 fL (80-97); Mean Platelet Volume 7.8 fL (7.5-11.2); Platelet Count 283 10^3/uL (150-450); Red Blood Count 4.84 10^6/uL (4.06-5.63); Red Cell Distribution Width 17.2 % (12-17); White Blood Count 9.1 10^3/uL (3.6-10.2)
[2023-12-23 11:10] LABS: Venous Bicarbonate HCO3 23.2 mmol/L (24-28)
[2023-12-23] MEDS: Furosemide 20 mg/2 ml IV VIAL IV SLOW PU ONE (11:39)
[2023-12-23 11:56] LABS: Albumin 3.9 g/dL (3.2-5.2); Albumin/Globulin Ratio 1.4 (1-3); Calcium 9.1 mg/dL (8.6-10.3); Creatinine, Serum 1.58 mg/dL (0.67-1.17); Globulin 2.7 g/dL (2-4); Potassium 5.5 mmol/L (3.5-5.0); Total Bilirubin 0.8 mg/dL (0.2-1.0); Total Protein 6.6 g/dL (6.4-8.9); eGFR CKD-EPI 47.9 (>60)
[2023-12-23 12:21] LABS: High Sensitivity Troponin 1 Hr 124 pg/mL (<20)
[2023-12-23] MEDS: Iodixanol (CONTRAST) 320 MG/ML 100 ML SDV IV ONE (12:47)
[2023-12-23] MEDS ORDERED: Albuterol HFA INHALER 8 gm MDI INH PRN (14:22)
[2023-12-23] MEDS ORDERED: Dextrose 50% Syringe 50 ml 25 GM/50 ML SYRINGE IV PUSH PRN (14:42)
[2023-12-23] MEDS: Furosemide 40 mg/4 ml IV VIAL IV ONE (15:07)
[2023-12-23] MEDS: Azithromycin 500 mg/250 ml NS 500 MG/250 ML BAG IVPB ONE (15:22)
[2023-12-23] MEDS: cefTRIAXone 1 gm/50 mL D5W 1 GM/50 ML BAG IV ONE (15:25)
[2023-12-23] MEDS: Norepinephrine 4 MG/250mL D5W 4,000 MCG/250 ML BAG IV SCH (17:00)
[2023-12-23] MEDS ORDERED: Norepinephrine 4 MG/250mL D5W 4,000 MCG/250 ML BAG IV ONE (17:02)
[2023-12-23 17:56] LABS: Urine Appearance Clear; Urine Bilirubin Negative (Negative); Urine Blood Negative (Negative); Urine Color Yellow; Urine Glucose Negative (Negative); Urine Ketones Negative (Negative); Urine Nitrite Negative (Negative); Urine Protein 1+ (>=30 mg/dL) (Negative); Urine Specific Gravity 1.047 (1.002-1.030); Urine Urobilinogen Negative (Negative); Urine pH 5.5 (5.0-8.0)
[2023-12-23 18:01] LABS: Urine Bacteria Absent /HPF (Absent); Urine Red Blood Cell 2+(6-10/hpf) /HPF (0-Trace); Urine White Blood Cell Trace(0-5/hpf) /HPF (0-Trace)
[2023-12-23] MEDS: DOBUTamine 2000 MCG/ML IVPREMX 500 MG/250 ML BAG IV SCH (18:20)
[2023-12-23 18:27] LABS: Resp Rate 12
[2023-12-23 18:33] LABS: PO2 Arterial 219 mmHg (80-100)
[2023-12-23 18:35] LABS: PCO2 Arterial 75 mmHg (35-45)
[2023-12-23] MEDS ORDERED: fentaNYL 100 mcg/2 ml 50 MCG/ML VIAL IV SLOW PU PRN (18:41)
[2023-12-23 18:44] LABS: ALT 60 U/L (7-52); Albumin 4.1 g/dL (3.2-5.2); Albumin/Globulin Ratio 1.3 (1-3); Alkaline Phosphatase 100 U/L (35-149); Blood Urea Nitrogen 42 mg/dL (6-24); CO2 Carbon Dioxide 29 mmol/L (22-32); Calcium 8.6 mg/dL (8.6-10.3); Chloride 97 mmol/L (101-111); Creatinine, Serum 1.78 mg/dL (0.67-1.17); Globulin 3.2 g/dL (2-4); Glucose 119 mg/dL (70-100); Sodium 134 mmol/L (135-145); Total Bilirubin 0.7 mg/dL (0.2-1.0); Total Protein 7.3 g/dL (6.4-8.9); eGFR CKD-EPI 41.6 (>60)
[2023-12-23 18:46] LABS: Anion Gap 8 mmol/L (2-16)
[2023-12-23] MEDS: Midazolam 2 mg/2 ml VIAL 1 mg/ml 2 ml VIAL (2 mg) IV SLOW PU ONE (18:50)
[2023-12-23] MEDS: Midazolam PREMIXBAG 1 MG/ML NS 100 ML IV SCH (19:25)
[2023-12-23] MEDS: fentaNYL INFUSION 50 mcg/mL VL 2,500 MCG/50 ML VIAL IV SCH (19:28)
[2023-12-23] MEDS: Rocuronium 50 mg VIAL 10 mg/ml 5 ml VIAL (50 mg) ONE ×2 (19:50)
[2023-12-23] MEDS: Succinylcholine 200 mg VIAL 20 mg/ml 10 ml VIAL (200 mg) ONE (19:50)
[2023-12-23] MEDS: EPINEPHrine SYR 0.1MG/ML 10 ml SYRINGE IV ONE (19:59)
[2023-12-23 20:38] LABS: Resp Rate 20
[2023-12-23] MEDS: Midazolam 2 mg/2 ml VIAL 1 mg/ml 2 ml VIAL (2 mg) ONE (20:39)
[2023-12-23] MEDS: Chlorhexidine MOUTHWASH 0.12% 15 ML UDC TOPICAL SCH (20:39)
[2023-12-23 20:40] LABS: PCO2 Arterial 66 mmHg (35-45); PO2 Arterial 127 mmHg (80-100)
[2023-12-23] MEDS: Furosemide 40 mg/4 ml IV VIAL IV SLOW PU ONE (20:41)
[2023-12-23] MEDS: Enoxaparin 40 MG/0.4 ML SYR SUBCUT SCH (20:45)
[2023-12-23] MEDS: Famotidine IV 10 MG/ML 2 ml VIAL (20 mg) IV SLOW PU SCH (20:45)
[2023-12-23] MEDS ORDERED: Enoxaparin 40 MG/0.4 ML SYR SUBCUT SCH (21:00)
[2023-12-23 21:17] LABS: Albumin 3.9 g/dL (3.2-5.2); Albumin/Globulin Ratio 1.4 (1-3); Calcium 8.9 mg/dL (8.6-10.3); Creatinine, Serum 1.92 mg/dL (0.67-1.17); Globulin 2.8 g/dL (2-4); Potassium 6.4 mmol/L (3.5-5.0); Potassium Redraw 6.4 mmol/L (3.5-5.0); Total Bilirubin 0.8 mg/dL (0.2-1.0); Total Protein 6.7 g/dL (6.4-8.9); eGFR CKD-EPI 37.9 (>60)
[2023-12-23] MEDS: Furosemide 100 mg/10 ml IV 100 MG in NS 0.9% 100 ml BAG 90 ML IV SCH (21:51)
[2023-12-23] MEDS: CALCIUM GLUCONATE 1GM/50ML NS 1 GM/50 ML BAG IV ONE (21:55)
[2023-12-23] MEDS: Midazolam 2 mg/2 ml VIAL 1 mg/ml 2 ml VIAL (2 mg) IV SLOW PU PRN (22:00)
[2023-12-23] MEDS: SODIUM ZIRCONIUM CYCLOSILICATE 10 GM PACKET NG TUBE ONE (22:47)
[2023-12-24 00:10] LABS: Calcium 8.7 mg/dL (8.6-10.3); Creatinine, Serum 1.82 mg/dL (0.67-1.17); Potassium 5.7 mmol/L (3.5-5.0); eGFR CKD-EPI 40.5 (>60)
[2023-12-24 04:23] LABS: ABS Eosinophils 0.1 10^3/uL (0.0-0.5); ABS Lymphocytes 0.7 10^3/uL (1.0-4.8); ABS Monocytes 0.9 10^3/uL (0.0-1.1); ABS Neutrophils 9.4 10^3/uL (1.5-7.6); Eosinophil % 0.6 %; Hematocrit 39.5 % (38-53); Hemoglobin 12.4 g/dL (13.2-16.3); Lymphocyte % 6.2 %; Mean Corpuscular Hgb Conc 31.5 g/dL (31-36); Mean Corpuscular Volume 85.8 fL (80-97); Mean Platelet Volume 7.9 fL (7.5-11.2); Platelet Count 255 10^3/uL (150-450); Red Cell Distribution Width 17.2 % (12-17); White Blood Count 11.1 10^3/uL (3.6-10.2)
[2023-12-24 04:49] LABS: Calcium 8.7 mg/dL (8.6-10.3); Creatinine, Serum 1.91 mg/dL (0.67-1.17); Magnesium 1.8 mg/dL (1.9-2.7); Phosphorus 6.6 mg/dL (2.5-5.0); Potassium 5.6 mmol/L (3.5-5.0); eGFR CKD-EPI 38.2 (>60)
[2023-12-24] MEDS ORDERED: .Amiodarone 24HR ONLY IV Protocol Order Note IV ONE (05:41)
[2023-12-24] MEDS: Magnesium Sulfate 2 gm BAG 2 GM/50 ML BAG IVPB ONE (05:42)
[2023-12-24] MEDS: Amiodarone 150 mg IVPREMIX 150 MG/100 ML BAG IV ONE ×3 (05:51→15:42)
[2023-12-24] MEDS: Amiodarone 360 MG IVPREMIX 360 MG/200 ML BAG IV ONE (05:57)
[2023-12-24] MEDS: Amiodarone 360 MG IVPREMIX 360 MG/200 ML BAG IV SCH ×3 (06:03→15:32)
[2023-12-24] MEDS: Sulfur Hexaflouride MICROSPHR 25 MG VIAL IV PRN (08:20)
[2023-12-24 08:24] LABS: Resp Rate 18
[2023-12-24 08:26] LABS: PCO2 Arterial 54 mmHg (35-45); PO2 Arterial 96 mmHg (80-100)
[2023-12-24] MEDS: Cholecalciferol (VIT D3) 1,000 unit TAB PO SCH (08:57)
[2023-12-24] MEDS ORDERED: Empagliflozin 25 MG TAB PO SCH (09:00)
[2023-12-24] MEDS: Furosemide 100 mg/10 ml IV 100 MG in NS 0.9% 100 ml BAG 90 ML IV SCH ×3 (09:31→20:08)
[2023-12-24] MEDS ORDERED: Sulfur Hexaflouride MICROSPHR 25 MG VIAL ONE (10:36)
[2023-12-24 12:14] VITALS: BP 85/62
[2023-12-24 12:40] LABS: Calcium 8.7 mg/dL (8.6-10.3); Creatinine, Serum 2.11 mg/dL (0.67-1.17); Potassium 5.3 mmol/L (3.5-5.0); eGFR CKD-EPI 33.9 (>60)
[2023-12-24] MEDS: DOBUTamine 2000 MCG/ML IVPREMX 500 MG/250 ML BAG IV SCH ×3 (14:20→20:22)
[2023-12-24] MEDS: Norepinephrine *QUAD STRENGTH* 16 mg/250 mL NS PREMIX (ICU ONLY) IV SCH (20:10)
[2023-12-24 21:17] LABS: Creatinine, Serum 2.93 mg/dL (0.67-1.17); Potassium 4.9 mmol/L (3.5-5.0); eGFR CKD-EPI 22.8 (>60)
[2023-12-25 04:23] LABS: ABS Basophils 0.1 10^3/uL (0.0-0.1); ABS Eosinophils 0.1 10^3/uL (0.0-0.5); ABS Lymphocytes 0.8 10^3/uL (1.0-4.8); ABS Monocytes 1.4 10^3/uL (0.0-1.1); ABS Neutrophils 9.2 10^3/uL (1.5-7.6); Eosinophil % 0.6 %; Hematocrit 38.8 % (38-53); Hemoglobin 12.1 g/dL (13.2-16.3); Lymphocyte % 6.6 %; Mean Corpuscular Hemoglobin 27.1 pg (27-33); Mean Corpuscular Hgb Conc 31.3 g/dL (31-36); Mean Corpuscular Volume 86.5 fL (80-97); Platelet Count 226 10^3/uL (150-450); Red Blood Count 4.49 10^6/uL (4.06-5.63); Red Cell Distribution Width 17.1 % (12-17); White Blood Count 11.5 10^3/uL (3.6-10.2)
[2023-12-25 04:54] LABS: Calcium 7.9 mg/dL (8.6-10.3); Creatinine, Serum 3.22 mg/dL (0.67-1.17); Potassium 4.7 mmol/L (3.5-5.0); eGFR CKD-EPI 20.4 (>60)
[2023-12-25 12:41] LABS: Calcium 7.7 mg/dL (8.6-10.3); Creatinine, Serum 3.63 mg/dL (0.67-1.17); Potassium 4.8 mmol/L (3.5-5.0); eGFR CKD-EPI 17.7 (>60)
[2023-12-25] MEDS: Amiodarone IV 150 mg/3 ml VIAL IV PUSH ONE (16:20)
[2023-12-25] MEDS: Amiodarone IV 150 mg/3 ml VIAL ONE (16:26)
[2023-12-25] MEDS: Amiodarone 150 mg IVPREMIX 150 MG/100 ML BAG IV ONE (16:29)
[2023-12-25] MEDS ORDERED: Midazolam 2 mg/2 ml VIAL 1 mg/ml 2 ml VIAL (2 mg) IV SLOW PU PRN (16:34)
[2023-12-25] MEDS ORDERED: Ondansetron 4 mg VIAL 2 MG/ML 2 ml VIAL IV PRN (16:41)
[2023-12-25] MEDS: fentaNYL 100 mcg/2 ml 50 MCG/ML VIAL IV PRN (17:24)
[2023-12-25] MEDS: Midazolam 5 mg/5 ml VIAL 1 mg/ml 5 ml VIAL (5 mg) IV SLOW PU PRN (17:25)
== END 2023-12-25 18:09 | disposition expired | DRG 291 ==
LOC: ED 09:44 → EDHOLD 13:55 → ICU 17:13
PROVIDERS: ADMIT Student in an Organized Health Care Education/Training Program; ATTEND Internal Medicine Critical Care Medicine